=== PATIENT | female | born 1940 | race Caucasian/White ===

== ENCOUNTER 2020-01-04 15:22 | Outpatient (CLI) | payer MEDICARE, OTHER, SELFPAY ==
--- NOTE | ~2020-01-04 | CT_ITS ---
EXAMINATION: CT abdomen pelvis wo con DATE: 01/04/2020 15:39 INDICATION: Diffuse abdominal pain and left flank pain. TECHNIQUE: Computed tomography (CT) of the abdomen and pelvis was performed without intravenous contr ast. Automated exposure control and iterative reconstruction technique were employed. The dose-length product was 215.53 mGy-cm. COMPARISON: None FINDINGS: Mild atelectasis/scarring the lingula and right middle lobe. Heart size is normal. No pericardial or pleural effusion. Calcified epicardial lymph node and multiple small hepatic and splenic calcificatio ns consistent with old granulomatous disease. Gallbladder, pancreas and bilateral adrenal glands are normal. Kidneys and ureters are normal with no urolithiasis, hydroureteronephrosis or perinephric/ure teral stranding. Bladder is normal. Normal appendix. Moderate amount of stool scattered throughout th e colon. No bowel obstruction. The uterus is not identified and has likely been surgically resected. No free intraperitoneal gas or fluid. No pathologically enlarged abdominal or pelvic lymphadenopathy. Mild lumbar spondylosis and mild bilateral hip osteoarthritis. IMPRESSION: 1. No urolithiasis or acute intra-abdominal/pelvic process. Reviewed, dictated and finalized at location A.
== END 2020-01-04 15:23 | disposition home or self-care (01) ==
LOC: ANHIMG 15:22
PROVIDERS: PCP Family Medicine; Visit Provider Family Medicine
DX: R10.9 Unspecified abdominal pain (principal); K59.00 Constipation, unspecified
CPT/HCPCS: 74176

== ENCOUNTER → 2020-10-02 09:13 | Outpatient (CLI) | payer MEDICARE, OTHER, SELFPAY ==
--- NOTE | ~2020-10-02 | XR_ITS ---
EXAMINATION: XR hip RT 2V w AP pelvis EXAM DATE: 10/02/2020 09:39 INDICATION: Low back pain . Right posterior hip pain. Symptoms 10 days. TECHNIQUE: Right hip frontal, 'frog leg' projections for interpretation. Frontal projection pelvis. There is no prior study for comparison. FINDINGS: Smooth right hip femoral head contour, no radiographic evidence of avascular necrosis. The re is mild symmetric bilateral hip primary osteoarthritis. Well-corticated ovoid ossification in the soft tissue adjacent to the right greater trochanter, benig n appearance. Most likely nonspecific granulation tissue or fat necrosis from prior injury. There are no acute fractures or dislocations identified. There is no subcutaneous gas. The soft tissue is un remarkable. There are no radiopaque foreign bodies. IMPRESSION: 1. Mild bilateral hip osteoarthritis. 2. Benign-appearing soft tissue calcification. Reviewed, dictated and finalized at location A.
--- NOTE | ~2020-10-02 | XR_ITS ---
EXAMINATION: XR lumbar spine 2-3V EXAM DATE: 10/02/2020 09:39 INDICATION: Low back pain TECHNIQUE: Lumber spine frontal, lateral, lateral L5-S1 projections for interpretation. There is no prior study for comparison. FINDINGS: The vertebral bodies are aligned in the AP dimension. Mild diffuse lumbar disc disease. Mo derate to severe lumbar facet arthropathy. The neural foramen appear congenitally large and not appre ciably stenotic. No pars defects. Vertebral body heights are maintained. Paraspinal soft tissue is un remarkable. Sacrum, sacroiliac joints, sacral arcuate lines are intact. IMPRESSION: Advanced lumbar facet arthropathy. Reviewed, dictated and finalized at location A.
== END ==
PROVIDERS: PCP Family Medicine; Visit Provider Physician Assistant
DX: M54.5 Low back pain (principal); M16.11 Unilateral primary osteoarthritis, right hip
CPT/HCPCS: 72100; 73502

== ENCOUNTER → 2020-11-15 10:14 | Outpatient (CLI) | payer MEDICARE, OTHER, SELFPAY ==
--- NOTE | ~2020-11-15 | MM_ITS ---
EXAMINATION: MM screening gabe BI w dani HISTORY: Screening mammogram TECHNIQUE: Craniocaudal and mediolateral oblique 3-D tomosynthesis images were obtained and synthetic 2-D images were generated. CAD analysis was submitted and interpreted. COMPARISON: 07/26/2019, 06/01/2018, 05/09/2017 bilateral digital screening mammogram examinations BREAST PARENCHYMAL COMPOSITION: The breasts are heterogeneously dense, which may obscure small masses . FINDINGS: Occasional benign calcifications. Stable mild fibroglandular asymmetry. There is no evidenc e of suspicious mass, calcification, or architectural distortion to suggest malignancy in either [address]. There has been no suspicious interval change. IMPRESSION: 1. No mammographic evidence of malignancy. 2. Recommend routine screening mammography in one year. BI-RADS Category 2: Benign finding(s). Reviewed, dictated and finalized at location A.
== END ==
PROVIDERS: PCP Family Medicine; Visit Provider Family Medicine
DX: Z12.31 Encounter for screening mammogram for malignant neoplasm of breast (principal)
CPT/HCPCS: 77063; 77067

== ENCOUNTER → 2021-02-26 13:47 | Outpatient (CLI) | payer MEDICARE, OTHER, SELFPAY ==
--- NOTE | ~2021-02-26 | US_ITS ---
EXAMINATION: US renal BI DATE: 02/26/2021 14:23 INDICATION: Chronic kidney disease TECHNIQUE: Multiple ultrasound grayscale images of the kidneys were obtained. COMPARISON: None. FINDINGS: The right kidney measures 7.8 x 3.7 x 3.4 cm. The left kidney measures 8.6 x 3.6 x 4.1 cm. The kidney s demonstrate normal echogenicity. There is no hydronephrosis in either kidney. No stones identified . The bladder is normal. IMPRESSION: 1. Bilateral mild likely age-related renal atrophy. Otherwise normal kidneys without hydronephrosis. Reviewed, dictated and finalized at location A. IMPRESSION: 1. Bilateral mild likely age-related renal atrophy. Otherwise normal kidneys w ithout hydronephrosis.
== END ==
PROVIDERS: PCP Family Medicine; Visit Provider Family Medicine
DX: N18.9 Chronic kidney disease, unspecified (principal)
CPT/HCPCS: 76775

== ENCOUNTER → 2021-06-29 09:26 | Outpatient (CLI) | payer MEDICARE, OTHER, SELFPAY ==
--- NOTE | ~2021-06-29 | MR_ITS ---
EXAMINATION: MR brain/brain stem wo con DATE: 06/29/2021 10:42 INDICATION: Tremor, unspecified. Syncope and collapse. TECHNIQUE: Magnetic resonance imaging (MRI) of the brain and brainstem was performed without intraven ous contrast. Sequences included sagittal and axial T1-weighted FSE, axial diffusion-weighted FS EPI, axial T2*-weighted GRE, axial T2-weighted FLAIR Propeller, and axial T2-weighted Propeller. Apparent diffusion coefficient (ADC) maps were created. COMPARISON: None. FINDINGS: There are scattered areas of nonspecific increased T2-weighted signal intensity in the cere bral white matter. There is no intracranial hemorrhage, acute infarction, or abnormal intracranial ma ss lesion. The ventricles are normal in size. There is mild mucosal thickening in the ethmoid sinuses . There are likely changes of ocular lens replacement surgeries. The mastoid air cells are normal. IMPRESSION: 1. Mild nonspecific cerebral white matter disease, which likely represents chronic small vessel ische raina disease. Reviewed, dictated and finalized at location A. GER WOMEN IMPRESSION: 1. 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
== END ==
PROVIDERS: PCP Family Medicine; Visit Provider Family Medicine
DX: R25.1 Tremor, unspecified (principal); R55 Syncope and collapse; R93.0 Abnormal findings on diagnostic imaging of skull and head, not elsewhere classified
CPT/HCPCS: 70551

== ENCOUNTER → 2021-07-03 09:40 | Outpatient (CLI) | payer MEDICARE, OTHER, SELFPAY ==
[2021-07-04 02:02] LABS: SARS-CoV-2 RNA PCR Positive
== END ==
PROVIDERS: PCP Family Medicine; Visit Provider Family Medicine
DX: U07.1 COVID-19 (principal)
CPT/HCPCS: C9803; U0003; U0005

== ENCOUNTER 2021-10-02 11:02 | Observation (INO) | payer MEDICARE, OTHER, SELFPAY ==
[2021-10-02] VITALS (42 sets, daily range): BP systolic 100–166; BP diastolic 56–145; PULSE 69–94; RESP 11–26; TEMP 35.8; O2SAT 93–100
--- NOTE | ~2021-10-02 | CT_ITS ---
EXAMINATION: CT brain wo con DATE: 10/02/2021 12:14 INDICATION: Transient ischemic attack. Seizure. Confusion. TECHNIQUE: Computed tomography (CT) of the head was performed without intravenous contrast. The mA wa s adjusted according to patient size. Iterative reconstruction technique was employed. The dose-lengt h product was 605.33 mGy-cm. COMPARISON: Head CT 03/03/2013 FINDINGS: There are scattered areas of low attenuation in the cerebral white matter, which is within normal limits for the patient's age. There is no intracranial hemorrhage, acute infarction, or abnorm al intracranial mass lesion. The ventricles are normal in size. There are likely changes of ocular le ns replacement surgeries. There is mild mucosal thickening in the ethmoid sinuses. The mastoid air ce lls are normal. IMPRESSION: 1. Normal aging brain. Reviewed, dictated and finalized at location A. IMPRESSION: 1. Normal aging brain.
--- NOTE | ~2021-10-02 | US_ITS ---
EXAMINATION: US carotid duplex BI DATE: 10/03/2021 08:14 INDICATION: Syncope. Transient ischemic episode. TECHNIQUE: Grayscale, color Doppler, and pulsed Doppler images of the cervical carotid arteries were obtained. The degree of vessel stenosis is placed in one of the following categories: normal, <50%, 5 0-69%, >=70% but less than near-occlusion, near-occlusion, or total occlusion. Note that percent sten osis relative to normal distal artery lumen diameter is indirectly measured from velocity measurement s as described by Jonnie, et al. Radiology 2003; [id number]. COMPARISON: None. FINDINGS: RIGHT: The right common carotid artery (CCA) peak systolic velocity (PSV) is 78 cm/s. The right internal car otid artery (ICA) PSV is 90 cm/s. The right ICA end-diastolic velocity (EDV) is 31 cm/s. The right IC A/CCA PSV ratio is 1.1. Grayscale and color Doppler images yield an estimate of <50% diameter reducti on from plaque in the ICA. The external carotid artery (ECA) PSV is 76 cm/s. There is antegrade flow in the right vertebral artery. LEFT: The left CCA PSV is 98 cm/s. The left ICA PSV is 75 cm/s. The left ICA EDV is 21 cm/s. The left ICA/C CA PSV ratio is 0.8. Grayscale and color Doppler images yield an estimate of <50% diameter reduction from plaque in the ICA. The ECA PSV is 69 cm/s. There is antegrade flow in the left vertebral artery. IMPRESSION: 1. <50% stenosis from minimal plaque in the right internal carotid artery. 2. <50% stenosis from minimal plaque in the left internal carotid artery. Reviewed, dictated and finalized at location A.
--- NOTE | ~2021-10-02 | XR_ITS ---
EXAMINATION: XR chest 2V DATE: 10/02/2021 11:20 INDICATION: Syncope. TECHNIQUE: Frontal and lateral views of the chest were obtained. COMPARISON: None. FINDINGS: The chest demonstrates clear lungs without pneumonia, pleural effusion, or pneumothorax. Th e heart size is normal. There is mild chronic anterior wedging of multiple midthoracic vertebral bodi es. IMPRESSION: 1. No acute cardiopulmonary disease. Reviewed, dictated and finalized at location A.
--- NOTE | 2021-10-02 11:05 | ECG_ITS ---
Measurements Intervals [place] Rate: 78 P: 81 DC: 160 QRS: 58 QRSD: 81 T: 77 QT: 361 QTc: 412 Interpretive Statements SINUS RHYTHM POSSIBLE LEFT ATRIAL ENLARGEMENT [-0.1mV P WAVE IN V1/V2] NO PREVIOUS ECG AVAILABLE FOR COMPARISON Electronically Signed On 10-02-2021 18:35:37 CDT by Adelaide Anand M.D.
[2021-10-02 11:21] LABS: Basophils Percent Auto 0.4 % (0.2-1.2); Eosinophils Percent Auto 0.6 % (0-4.4); Hematocrit 45.9 % (37.0-47.0); Hemoglobin 14.9 g/dL (12.0-15.0); Immature Granulocyte Absolute 0.02 K/mm3 (0.00-0.031); Immature Granulocyte Percent A 0.4 % (0-0.5); Lymphocytes Absolute Auto 1.27 K/mm3 (0.9-3.2); Lymphocytes Percent Auto 26.3 % (18.3-44.2); Mean Corpuscular HGB Conc 32.5 g/dl (32-36); Mean Corpuscular Hemoglobin 31.5 pg (26-34); Mean Platelet Volume 9.9 fl (7.4-10.4); Monocytes Absolute Auto 0.6 K/mm3 (0.1-0.6); Monocytes Percent Auto 12.9 % (2.6-8.5); Neutrophils Absolute Auto 2.9 K/mm3 (1.3-6.7); Neutrophils Percent Auto 59.4 % (45.5-73.1); Platelet Count Result 181 k/mm3 (150-375); Red Blood Count 4.73 M/mm3 (4.2-5.4); Red Cell Distribution Width 12.8 % (11.5-14.5); White Blood Count 4.8 K/mm3 (4.5-10.0)
[2021-10-02 11:29] LABS: INR 0.9; Prothrombin Time 12.2 Seconds (11.1-14.7)
[2021-10-02 11:30] LABS: Partial Thromboplastin Time 22.4 SECONDS (22.3-36.8)
[2021-10-02 11:33] LABS: Alanine Aminotransferase 40 U/L (4-35); Albumin Level 4.7 g/dL (3.5-5.1); Alkaline Phosphatase 93 U/L (38-126); Anion Gap 7 mmol/L (8-16); Aspartate Amino Transferase 51 U/L (14-36); Bilirubin,Total 0.6 mg/dL (0.2-1.3); Blood Urea Nitrogen 21 mg/dL (7-17); Calcium 9.3 mg/dL (8.4-10.2); Carbon Dioxide 28 mmol/L (22-30); Chloride 103 mmol/L (98-107); Estimated CRCL calculation 37 ml/min; Estimated Glomerular Filt Rate 60; Glucose 76 mg/dL (65-110); Lipase 136 U/L (23-300); Potassium 4.2 mmol/L (3.4-5.0); Sodium 138 mmol/L (137-145)
[2021-10-02 11:43] LABS: Troponin I < 0.012 ng/mL (0.000-0.034)
--- NOTE | 2021-10-02 12:31 | ED.SYNCOPE ---
HPI - Syncope General Chief Complaint: Syncope Stated Complaint: Syncope Time Seen by Provider: 10/02/21 11:56 Source: patient and RN notes reviewed Mode of arrival: EMS Limitations: no limitations History of Present Illness HPI narrative: 81-year-old female presenting to the emergency department for evaluation after having a syncopal episode at a local restaurant. Patient was having lunch with a friend and while sitting she stated she started to feel ill. Patient did rest her head on her hands and stopped responding to her friend. Friend states that the patient slumped over into her chair and did have some minor shaking activity. Patient's friend was able to lay her onto the floor with some assistance of bystanders, EMS was called. They state once they got the patient onto the floor and was able to get her legs elevated that she had significant improvement. Patient states that she had no loss of bowel or bladder control. Patient did not bite her tongue. Patient was not confused after the episode. Patient does have prior history of syncope but has no prior history of TIA. Patient did start ropinirole approximately 6 weeks ago. Patient states since starting this she has had approximately 3 episodes of syncope. Patient did increase her dose to 0.25 mg 3 times daily approximately 1 week ago. Patient did have an event monitor in may, Dr Vyas. Related Data Home Medications Medication Instructions Recorded Confirmed clobetasol 0.05 % topical ointment 1 applic TOPICAL PRN 05/30/21 10/02/21 amitriptyline 10 mg PO HS 10/02/21 10/02/21 famotidine 20 mg PO HS 10/02/21 10/02/21 hydroxychloroquine 200 mg PO HS 10/02/21 10/02/21 levothyroxine 50 mcg PO DAILY 10/02/21 10/02/21 triamcinolone acetonide 1 applic TOPICAL PRN PRN 10/02/21 10/02/21 Allergies Allergy/AdvReac Type Severity Reaction Status Date / Time Gadolinium-Containing Allergy Unknown Unknown Verified 10/02/21 11:24 Contrast Medi iodine Allergy Unknown Skin Verified 10/02/21 11:24 Reaction warfarin Allergy Unknown itching Verified 10/02/21 11:24 all over ciprofloxacin [From Cipro] Allergy Itching Verified 10/02/21 11:24 Review of Systems Review of Systems: CONSTITUTIONAL: Denies fever, chills, or sweats. EYES: Denies visual changes, redness, or discharge. ENT: Denies rhinorrhea, congestion, sore throat, or otalgia. CARDIOVASCULAR: Denies chest pain, palpitations, or edema. RESPIRATORY: Denies cough or dyspnea. GASTROINTESTINAL: Denies abdominal pain, nausea, vomiting, or diarrhea. GENITOURINARY: Denies dysuria or hematuria. SKIN: Denies rash or itching. MUSCULOSKELETAL: Denies back pain, joint pain, or myalgia. NEUROLOGIC: syncope. [facility] Past Medical History Medical History Bilateral hand pain Blood clot of neck vein 2001. patient reports trauma Counseling on health promotion and disease prevention COVID-19 Duodenal ulcer disease 2018 EGD Dyspepsia Encounter for medication management Health counseling History of esophageal stricture egd 2018 Hypothyroidism, unspecified Optic nerve hemorrhage 2013 Other specified counseling Surgical History Surgical History (Updated 10/02/21 @ 19:24 by Komal Farmer APRN) History of cataract removal with insertion of prosthetic lens History of hysterectomy History of tonsillectomy Family History Family History Mother Family history of osteoporosis Father Family history of liver disease, Onset Age: 82 Sibling Family history of colitis Family history of arthritis Social History Social History (Updated 10/02/21 @ 17:46 by Adelaide Anand MD) Social History: in 2018. She has 1 son in [place] and the other son in [place], with her grandchildren. 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 Alcohol intake: never Gender identity (
--- NOTE | 2021-10-02 12:53 | PC.NURSE ---
Pt provided ice water and food. Pt has no other needs. Updated waiting on repeat troponin
[2021-10-02 14:41] LABS: Troponin I < 0.012 ng/mL (0.000-0.034)
--- NOTE | 2021-10-02 15:16 | PC.NURSE ---
Attempted to call floor/ Nurse was unable for report. Will call back.
--- NOTE | 2021-10-02 17:08 | PM.CNCAR ---
Assessment and Plan Assessment and plan (1) Recurrent syncope: Code(s): R55 - Syncope and collapse Status: Acute Assessment and Plan: Patient with recurrent syncope. Likely orthostatic /vasovagal in nature. Cannot rule out a cardio inhibitory component. Check orthostatics Check echo Will discuss with the patient whether to proceed with further monitoring or a loop recorder to rule out a cardio inhibitory component Increase salt intake, increase fluid intake discussed muscle contraction exercises to use with the prodrome always pay attention to the prodrome and sit down or lie down when it occurs Ropinirole is associated with orthostasis and may be best to discontinue it. History of Present Illness History of Present Illness Consult date/time: 10/02/21 17:08 Requesting physician: Sammy Wu MD Consult reason: Other (Recurrent syncope) Reason For Visit: Syncope Narrative: Savi Redding is an 81-year-old female whom I was asked to see at the request of Dr. Sammy Wu for my advice and opinion regarding her recurrent syncope in consultation. Ms. Redding tells me she has had lightheadedness and near syncopal episodes for about 50 years, generally occurring every couple of years. These spells are worse when she is hot or in the sun. She will start to feel lightheaded, hot and flushed, and often will take off her jacket, take deep breaths, and sit down if she is standing up. She has had a couple true syncopal episodes in the past, for example once while visiting someone in the hospital and was hot and nervous, and once when she was at a rodeo in [place], when it was hot. She has had about 2 or 3 episodes of near syncope in the past month. She also tells me that her blood pressure tends to run on the low side, sometimes in the 90s. She has no history of any heart disease and has not felt any chest pain or palpitations these episodes. Orthostatics done in Dr. Portillo's office apparently has been fine. 05/2021 30 day monitor: Normal sinus rhythm, frequent PVCs and APCs; no sx at that time. Today the patient felt well and was out for breakfast with a friend when she started having that same old lightheaded feeling. Apparently she passed out and her friend and bystanders helped her to the floor where she immediately felt better and regained consciousness. EMS was called. She thinks her blood pressure was in the 90s when they arrived. In the emergency room her blood pressure was 116-124/70s. She is feeling well now. The patient has a tremor, possibly Parkinson's disease, and was started on ropinirole a few weeks ago Her dose was changed from 0.25 mg 2 tablets b.i.d. to: 2 tablets t.i.d. last week. She is always busy, has no problems with any exertional shortness of breath or chest pain. No hypertension or history of heart disease. Review of Systems Constitutional: Constitutional: Reports weakness Eyes: Eyes: Reports blurry vision ( Wears glasses) Cardiovascular: Cardiovascular: Denies chest pain, Denies pedal edema, Denies leg edema, Reports lightheadedness and Denies palpitations Respiratory: Respiratory: Denies dyspnea on exertion Gastrointestinal: Gastrointestinal: Denies abdominal pain Comments: acid reflux Genitourinary: Genitourinary: Denies hematuria Musculoskeletal: Musculoskeletal: Reports arthralgias Integumentary/Breasts: Skin/Breast: Denies rash Neurologic: Denies Abnormal speech present and Denies confusion Psychiatric: Psychiatric: Denies anxiety and Denies behavioral changes [facility] Past Medical History Medical History Bilateral hand pain Blood clot of neck vein 2001. patient reports trauma Counseling on health promotion and disease prevention COVID-19 Duodenal ulcer disease 2018 EGD Dyspepsia Encounter for medication management Health counseling History of esophageal stricture egd
[2021-10-02 17:42] LABS: Troponin I < 0.012 ng/mL (0.000-0.034)
--- NOTE | 2021-10-02 18:47 | PM.IMHP ---
H&P: HPI History of Present Illness Date/Time: Patient was placed observation status for expected length of stay less than 23 hours for management, will plan to re-evaluate tomorrow for improvement. 10/02/21 18:47 Chief Complaint: Syncopal episode Narrative: Ms. Redding is an 81 year old female who presented to the emergency room with complaints of a syncopal episode. Patient states that she has had episodes where she becomes very lightheaded and dizzy when she has been standing and she will sit down and it typically goes away. Patient states that years ago she did have 1 episode when she was going to run to the bathroom to vomit and she passed out in the [place] and her found her. Patient states today she was sitting down at [employer] having a muscle with her friends and she states that she felt very dizzy and hot. Patient states that she was told that her friends were talking to her, but she cannot recall that her friends were talking to her. Her friend is at bedside states the patient would not respond to them and she slumped to the side. Patient's friend states that she felt for a pulse and her pulse was bounding but the patient was extremely clammy. Patient's friend states that they then called EMS which lower the patient to the floor and lifted her feet up in the patient woke up. Patient's friend states that she feels that her friend was unconscious for approximately 1-2 minutes. Patient denies any chest pain, shortness a breath, or palpitations prior to the episode. Patient states her only complaint was dizziness. Patient denies any tunnel vision, weakness, slurring of speech, or loss of bowel or bladder. Patient states she has a known history of chronic headaches, hypothyroidism, tremors, and blood clot in her neck. Patient states that she has been receiving Requip for her tremors and recently her primary care increase the Requip from b.i.d. to t.i.d.. Patient states with her previous syncopal and near syncopal episode she did wear a Holter monitor which showed nothing. Review of Systems Review of Systems: A 12 point review of systems was completed patient all pertinent positive and negative per HPI the remainder are unremarkable. [facility] Past Medical History Medical History Bilateral hand pain Blood clot of neck vein 2001. patient reports trauma Counseling on health promotion and disease prevention COVID-19 Duodenal ulcer disease 2018 EGD Dyspepsia Encounter for medication management Health counseling History of esophageal stricture egd 2018 Hypothyroidism, unspecified Optic nerve hemorrhage 2013 Other specified counseling Surgical History Surgical History (Updated 10/02/21 @ 19:24 by Komal Farmer APRN) History of cataract removal with insertion of prosthetic lens History of hysterectomy History of tonsillectomy Family History Family History Mother Family history of osteoporosis Father Family history of liver disease, Onset Age: 82 Sibling Family history of colitis Family history of arthritis Social History Social History (Updated 10/02/21 @ 17:46 by Adelaide Anand MD) Social History: in 2017. She has 1 son in [place] and the other son in [place], with her grandchildren. 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 Alcohol intake: never Gender identity (if verbalized by the patient): Male Spiritual care concerns: No Meds Home Medications and Allergies Home Medications Medication Instructions Recorded Confirmed Type clobetasol 0.05 % topical ointment 1 applic TOPICAL PRN 05/30/21 10/02/21 History ropinirole 0.25 mg tablet 1 mg PO TID #360 tablet 09/26/21 10/02/21 Rx amitriptyline 10 mg PO HS 10/02/21 10/02/21 History famotidine 20 mg PO HS 10/02/21 10/02/21 History hydroxychloroquine 200 mg PO HS 10/02/21 10/02/21 H
[2021-10-02] MEDS: AMITRIPTYLINE HCL 10 MG TABLET PO (20:35)
[2021-10-02] MEDS: FAMOTIDINE 20 MG TABLET PO (20:35)
[2021-10-02] MEDS: HYDROXYCHLOROQUINE SULFATE 200 MG TABLET PO (20:35)
[2021-10-03] VITALS (7 sets, daily range): BP systolic 96–102; BP diastolic 50–58; PULSE 66–77; RESP 16–20; TEMP 35.6–36.5; O2SAT 99–100
[2021-10-03] MEDS: MELATONIN 5 MG TABLET PO (00:53)
[2021-10-03 05:38] LABS: Basophils Percent Auto 0.6 % (0.2-1.2); Eosinophils Absolute Auto 0.1 K/mm3 (0-0.3); Eosinophils Percent Auto 1.2 % (0-4.4); Hematocrit 38.1 % (37.0-47.0); Hemoglobin 12.8 g/dL (12.0-15.0); Immature Granulocyte Absolute 0.02 K/mm3 (0.00-0.031); Immature Granulocyte Percent A 0.4 % (0-0.5); Lymphocytes Percent Auto 39.4 % (18.3-44.2); Mean Corpuscular HGB Conc 33.6 g/dl (32-36); Mean Corpuscular Volume 92.3 fl (80-100); Mean Platelet Volume 10.1 fl (7.4-10.4); Monocytes Absolute Auto 0.8 K/mm3 (0.1-0.6); Monocytes Percent Auto 14.8 % (2.6-8.5); Neutrophils Absolute Auto 2.2 K/mm3 (1.3-6.7); Neutrophils Percent Auto 43.6 % (45.5-73.1); Platelet Count Result 170 k/mm3 (150-375); Red Blood Count 4.13 M/mm3 (4.2-5.4); Red Cell Distribution Width 12.6 % (11.5-14.5); White Blood Count 5.1 K/mm3 (4.5-10.0)
[2021-10-03] MEDS: LEVOTHYROXINE SODIUM 50 MCG TABLET PO (05:42)
[2021-10-03 05:50] LABS: Anion Gap 5 mmol/L (8-16); Blood Urea Nitrogen 15 mg/dL (7-17); Calcium 8.8 mg/dL (8.4-10.2); Carbon Dioxide 28 mmol/L (22-30); Chloride 105 mmol/L (98-107); Estimated CRCL calculation 37 ml/min; Estimated Glomerular Filt Rate 60; Glucose 88 mg/dL (65-110); Potassium 3.6 mmol/L (3.4-5.0); Sodium 138 mmol/L (137-145)
--- NOTE | 2021-10-03 07:00 | ECHO_ITS ---
Patient Info Name: Savi Redding Age: 81 years : 1940 Gender: Female Ht: 66 in Wt: 119 lbs BSA: 1.58 m2 HR: 66 bpm BP: 96 / 50 mmHg Heart Rhythm: Sinus Rhythm Technical Quality: Fair Exam Date: 10/03/2021 10:46 AM Exam Location: [facility] Card Pulmonary Patient Status: Outpatient Admit Date: 10/02/2021 Staff Ordering Physician: Adelaide Anand MD Hand Decorator: Jennifer De Leon RDCS Attending Provider: Michelle Ayala MD Referring Physician: Cheng LARA; Exam Type: CA echo doppler color flow Study Info Indications - SYNCOPE Complete two-dimensional, color flow and Doppler transthoracic echocardiogram is performed. Summary 1. Complete two-dimensional, color flow and Doppler transthoracic echocardiogram is performed. 2. Normal left ventricular size and thickness. Good systolic function of all segments with no segmental wall motion abnormalities. Ejection fraction is calculated to be 65%. Grade 1 diastolic dysfunction is present. 3. There is mild aortic valve regurgitation. 4. Normal sinus rhythm. Left Ventricle Left ventricular chamber dimension is normal. Left ventricular systolic function is normal, estimated at 60-65%. There is no increased left ventricular wall thickness. Left ventricular septal wall motion is normal. The left ventricular diastolic function is grade I diastolic dysfunction. Right Ventricle Right ventricular chamber dimension is normal. Right ventricular systolic function is normal. Left Atria Left atrial chamber dimension is normal. Right Atria Right atrial chamber dimension is normal. Aortic Valve The aortic valve is trileaflet. There is no aortic valve sclerosis. There is no aortic valve stenosis. There is mild aortic valve regurgitation. Pulmonic Valve The pulmonic valve is normal. There is no pulmonic valve stenosis. There is trace pulmonic regurgitation. Mitral Valve The mitral valve has normal leaflets. There is no mitral valve stenosis. There is no mitral valve regurgitation. Tricuspid Valve The tricuspid valve leaflets are normal. There is no significant tricuspid valve stenosis. There is trace tricuspid valve regurgitation. No pulmonary hypertension, estimated pulmonary arterial systolic pressure is 28 mmHg. Pericardium/Pleural The pericardium appears normal. There is no pericardial effusion. Inferior Vena Cava Normal inferior vena cava with >50% collapse upon inspiration consistent with Empty right atrial pressure, 10 mmHg. Aorta The aortic root size at the sinus of Valsalva is normal. The prox ascending aorta size is normal. Left Ventricular Outflow Tract Name Value Normal LVOT 2D LVOT Diameter 2.0 cm LVOT Doppler LVOT Peak Gradient 4 mmHg LVOT Mean Gradient 2 mmHg LVOT VTI 20 cm LVOT VTI/AV VTI Ratio 0.9 LVOT Stroke Volume 62 ml LVOT CO 4.2 l/min LVOT CI 2.7 l/min/m2 Pulmonic V
[2021-10-03] MEDS: ACETAMINOPHEN 325 MG TABLET 650 MG PO (09:00)
[2021-10-03] MEDS: ENOXAPARIN 40 MG/0.4 ML SYRINGE SUB-Q (09:00)
[2021-10-03] MEDS: SODIUM CHLORIDE 0.9% IV 250 ML 70 ML IV CONT (13:27)
--- NOTE | 2021-10-03 14:31 | PM.PNCARD ---
Progress Note: A&P Assessment and Plan (1) Recurrent syncope: Code(s): R55 - Syncope and collapse Status: Acute Assessment and Plan: Patient with recurrent syncope. Likely orthostatic /vasovagal in nature. Cannot rule out a cardio inhibitory component. Orthostatics negative Echo showed good LV fxn Increase intravascular volume by increasing salt intake, increase fluid intake, take salt tablets Reviewed muscle contraction exercises to use with the prodrome Always pay attention to the prodrome and sit down or lie down when it occurs Ropinirole is associated with orthostasis and may be best to discontinue it. My expectations there is a significant cardio inhibitory component is low. However the patient has increasing frequency of symptoms, particularly of actual syncope, we can evaluate further with a loop recorder. I gave her my phone number to call if she wanted to pursue this in the future. We also have medications that can be used to increase blood pressure and intravascular volume such as Florinef and midodrine. Those are options the future if her episodes become more frequent or severe Okay for discharge from my point of view. (2) Low blood pressure: Code(s): I95.9 - Hypotension, unspecified Status: Acute Assessment and Plan: History of running low breath pressure at home. Today her systolic is 95 and she is feeling fine. Getting IV fluids Same as before: Increase salt and fluid intake, avoid heat etc.. Subjective Date/time seen: 10/03/21 14:31 Interval history: Patient with a long history of recurrent syncope And near-syncope. Follow-up for syncopal episode. date of service 10/03/2021: Patient is doing fine, no new problems. States she had orthostatics done last night and they were unremarkable (I can not find them ). Systolic BP today is 95. Echo showed normal LV function. Carotid ultrasound showed less than 50% stenosis bilaterally Review of Systems Constitutional: Constitutional: Denies weakness Eyes: Eyes: Denies blurry vision ENT: Denies epistaxis Cardiovascular: Cardiovascular: Denies chest pain and Denies leg edema Respiratory: Respiratory: Denies dyspnea Gastrointestinal: Gastrointestinal: Denies abdominal pain Genitourinary: Genitourinary: Reports no additional female genitourinary complaints Musculoskeletal: Musculoskeletal: Reports no additional musculoskeletal complaints Integumentary/Breasts: Skin/Breast: Reports system reviewed and no additional complaints, except as docu Neurologic: Reports system reviewed and no additional complaints, except as documented Psychiatric: Psychiatric: Reports no additional psychiatric complaints Exam Narrative: Very pleasant smiling older lady sitting up in chair reading her book Const: General: comfortable and no acute distress HENMT: General nose exam: no epistaxis Eyes: EOM: EOMs intact bilaterally Neck: Neck: supple Resp: Effort & Inspection: normal respiratory effort Auscultation: clear to auscultation bilaterally Cardio: Rate: regular rate Rhythm: regular rhythm Heart sounds: no murmurs GI: Inspection: non-distended GI Palp: Yes Soft to palpation Skin: General skin exam: no rashes or lesions noted Neuro: Cognition (Neuro): normal cognition Speech: normal speech Extrem: General: no edema Psych: Mental Status: mental status grossly normal Objective Data Vital Signs Vital Signs: Vital Signs - 24 hr 10/02/21 14:41 10/02/21 14:45 10/02/21 14:46 Temperature Pulse Rate 94 82 82 Respiratory Rate 16 18 15 Blood Pressure 105/65 115/95 H Pulse Oximetry 100 100 100 10/02/21 14:49 10/02/21 15:00 10/02/21 15:02 Temperature Pulse Rate 75 88 88 Respiratory Rate 17 25 H 26 H Blood Pressure 119/56 L 166/145 H Pulse Oximetry 97 100 100 10/02/21 16:00 10/02/21 19:49 10/02/21 19:52 Temperature 96.4 F L 96.4 F L Pulse Rate 74 80 81 Respiratory Rate
--- NOTE | 2021-10-03 15:46 | PM.DS ---
DS: Admitting Diagnosis Discharge Date 10/03/2021 Admitting Diagnosis Syncopal episode DS: Discharge Diagnosis Discharge Diagnosis (1) Syncope: Qualifiers: Syncope type: unspecified Qualified Code(s): R55 - Syncope and collapse Code(s): R55 - Syncope and collapse Status: Acute Assessment and Plan: Patient with recurrent syncope. Orthostatic /vasovagal in nature. US carotids are negative ? Requip related. (2) Tremor: Code(s): R25.1 - Tremor, unspecified Status: Acute Assessment and Plan: Patient had a recent increase of her dose of Requip from b.i.d. to t.i.d.. Requip has been noted to call as bradycardia, syncope, and orthostatic hypotension. We will stop requip in the hospital. (3) Hypothyroid: Qualifiers: Hypothyroidism type: unspecified Qualified Code(s): E03.9 - Hypothyroidism, unspecified Code(s): E03.9 - Hypothyroidism, unspecified Status: Acute Assessment and Plan: TSH is nl (4) Low blood pressure: Code(s): I95.9 - Hypotension, unspecified Status: Acute Assessment and Plan: Hypotension, pt treated with iv fluids not tilting, pt adviced to drink plenty of fluids DS: Summary Hospital Course Hospital Course: Miladis is an 81 year old female who presented to the emergency room with complaints of a syncopal episode. Patient states that she has had episodes where she becomes very lightheaded and dizzy when she has been standing and she will sit down and it typically goes away. Pt had iv fluids, Bp improved, pt is stable for DC. Time Spent with Patient Time attestation: Total time spent providing and/or coordinating discharge services:40 minutes on the day of discharge Exam Narrative: Constitutional: Patient is well-nourished in no acute distress. Patient is alert and oriented x3 Lungs: Lung sounds are clear to auscultation bilaterally. No accessory muscle use. No rhonchi, rales, or wheezes noted. Cardiovascular: Apical pulse is regular rate and rhythm. S1-S2 noted, no S3 or S4 noted. No gallops, murmurs, or rubs noted. Abdomen: Soft, round, and nontender. No palpable masses. Extremities: No edema. Nontender. Skin: No rashes or lesions. Warm and dry. Skin is intact. Neurological: No focal neurological deficits. Cranial nerves II-XII grossly intact. Psychiatric: Cooperative, appropriate mood, and affect DS: Data Data Completed and Pending Labs on day of discharge: Labs from last 24 hours 10/03/21 10/03/21 10/03/21 05:14 05:14 05:14 WBC 5.1 RBC 4.13 L Hgb 12.8 Hct 38.1 MCV 92.3 MCH 31.0 MCHC 33.6 RDW 12.6 Plt Count 170 MPV 10.1 Immature Gran % (Auto) 0.4 Neut % (Auto) 43.6 L Lymph % (Auto) 39.4 [place] % (Auto) 14.8 H Eos % (Auto) 1.2 Baso % (Auto) 0.6 Lymph # (Auto) 2.00 [place] # (Auto) 0.8 H Eos # (Auto) 0.1 Baso # (Auto) 0.0 Abs Immat Gran (auto) 0.02 Absolute Neuts (auto) 2.2 Absolute Nucleated RBC 0.0 Nucleated RBC % 0.0 Sodium 138 Potassium 3.6 Chloride 105 Carbon Dioxide 28 Anion Gap 5 L BUN 15 D Creatinine 0.90 Estim Creat Clear Calc 37 Estimated GFR 60 Glucose 88 Calcium 8.8 Troponin I TSH (Reflex) 3.950 10/02/21 17:15 WBC RBC Hgb Hct MCV MCH MCHC RDW Plt Count MPV Immature Gran % (Auto) Neut % (Auto) Lymph % (Auto) [place] % (Auto) Eos % (Auto) Baso % (Auto) Lymph # (Auto) [place] # (Auto) Eos # (Auto) Baso # (Auto) Abs Immat Gran (auto) Absolute Neuts (auto) Absolute Nucleated RBC Nucleated RBC % Sodium Potassium Chloride Carbon Dioxide Anion Gap BUN Creatinine Estim Creat Clear Calc Estimated GFR Glucose Calcium Troponin I < 0.012 TSH (Reflex) Discharge Plan Discharge Attending physician on discharge: Monique Cho Consulting providers: Adelaide Anand ; Milton Carias
--- NOTE | 2021-10-03 16:30 | WPDNEURCNPN ---
Assessment and Plan Additional Plan 1. Orthostatic /vasovagal syncopal episode 2 cardiology consultation has been obtained and their recommendation have been noted patient had been taking ropinirole with the increasing symptomatology that medication can be discontinued and symptomatic treatment will be continued at present Consult date: 10/03/21 HPI: Savi Redding is a 81 year old female 81 years old right-handed female has been placed on observation status. Presented to emergency room with complaints of syncopal episodes with description that she becomes very lightheaded dizzy when she stands up and when she sits down it typically goes away reportedly years ago she had an episode when she was going to run to the bathroom to vomit she passed out in the munoz and her found her today she was sitting down at the company she felt very dizzy and hot her friends were talking to her at that time but she was unable to recall and she was not responding to them and then she slumped to the side he had bounding pulse at that time as per the observer but extremely clammy they called the EMS and when she was lowered to the floor and lifted her feet up the patient woke reportedly as per the friend she was unconscious for approximately 1 to 2 minutes but she gave no history of associated any other general or neurological symptomatology and also she did not become incontinent of bowel or bladder. She does have a history of blood clot in the neck secondary to trauma, history of COVID-19, history of duodenal ulcer disease, and history of esophageal stricture requiring dilatation and also optic nerve hemorrhage in the past, she has undergone cataract extraction, she does not drink alcohol and her medication as an outpatient included ropinirole 0.25 mg 3 times a day amitriptyline 10 mg at night hydroxychloroquine 200 p.o. HS levothyroxine 50 micro christian daily she is reportedly allergic to warfarin her initial vital signs were stable, initial routine blood studies were unremarkable and x-ray chest CT of the head and carotid Doppler studies are negative Review of Systems Review of Systems: All systems reviewed & are unremarkable except as noted in HPI and below [facility] Past Medical History Medical History Bilateral hand pain Blood clot of neck vein 2001. patient reports trauma Counseling on health promotion and disease prevention COVID-19 Duodenal ulcer disease 2017 EGD Dyspepsia Encounter for medication management Health counseling History of esophageal stricture egd 2017 Hypothyroidism, unspecified Optic nerve hemorrhage 2013 Other specified counseling Surgical History Surgical History History of cataract removal with insertion of prosthetic lens History of hysterectomy History of tonsillectomy Family History Family History Mother Family history of osteoporosis Father Family history of liver disease Sibling Family history of arthritis Family history of colitis Mother No problems noted. Social History Social History Social History: in 2017. She has 1 son in [place] and the other son in [place], with her grandchildren. 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 Second hand tobacco smoke exposure: No Alcohol intake: never Gender identity (if verbalized by the patient): Male Spiritual care concerns: No Meds Home Medications and Allergies Home Medications Medication Instructions Recorded Confirmed Type clobetasol 0.05 % topical ointment 1 applic TOPICAL PRN 05/30/21 10/02/21 History ropinirole 0.25 mg tablet 1 mg PO TID #360 tablet 09/26/21 10/03/21 Rx amitriptyline 10 mg PO HS 10/02/21 10/02/21 History famotidine 20 mg PO HS 10/02/21 10/02/21 History hydroxychloroquine 200 mg PO HS
== END 2021-10-03 18:10 | disposition home or self-care (01) ==
LOC: ANHED 14:01 → ANH3MED 10-03 09:20
PROVIDERS: Emergency Medicine; Nurse Practitioner Adult Health; Admitting Provider Family Medicine; Emergency Provider Emergency Medicine; PCP Family Medicine; Visit Provider Family Medicine
DX: R55 Syncope and collapse (principal); I95.9 Hypotension, unspecified; E03.9 Hypothyroidism, unspecified; R25.1 Tremor, unspecified; I35.1 Nonrheumatic aortic (valve) insufficiency; I65.23 Occlusion and stenosis of bilateral carotid arteries
CPT/HCPCS: 36415; 70450; 71046; 80048; 80053; 83690; 84443; 84484; 85025; 85610; 85730; 93005; 93306; 93880; 96372; 99285; A9270; G0378; J1650; J7050

== ENCOUNTER 2021-10-06 08:30 | Outpatient (CLI) | payer MEDICARE, OTHER, SELFPAY ==
--- NOTE | ~2021-10-06 | DEXA_ITS ---
Bone Density Report Name: YANELIS REECE Age: 81 Sex: Female Ethnicity: White Date of : 1940 Indication: postmenopausal; parental hip fracture; height loss; hysterectomy; Referring Provider: RUBEN BONDS Study: Bone densitometry was performed. Exam Date: October 06, 2021 Accession number: [id number] Bone Density: Region BMD T-score Z-score Classification AP Spine (L1-L4) 1.044 0.0 2.7 Normal Femoral Neck (Left) 0.721 -1.2 1.2 Osteopenia Total Hip (Left) 0.864 -0.6 1.5 Normal Total Hip Bilateral Avg 0.836 -0.9 1.3 Normal Femoral Neck (Right) 0.708 -1.3 1.1 Osteopenia Total Hip (Right) 0.807 -1.1 1.0 Osteopenia World Health Organization criteria for BMD impression classify patients as: Normal (T-score at or above -1.0), Osteopenia (T-score between -1.0 and -2.5), or Osteoporosis (T-score at or below -2.5). 10-year Fracture Risk: FRAX not reported because: Treated for osteoporosis Clinical Information Provided by Patient: Parent has had a hip fracture Is being treated for osteoporosis Has used the following medications: Prolia (i.e. denosumab), Calcium Has the following medical conditions: Hysterectomy Patient maximum height was 67 Menopause Age: 50 Drinks caffeinated beverages Onset of menses at age 12 Number of children 2 Impression: The patient has low bone mass, based on the Right Femoral Neck T-score. The patient has risk factors, including: parental hip fracture. Discussion: It is important to ask patients whether they are taking their medications and to encourage continued and appropriate compliance with their osteoporosis therapies to reduce fracture risk. It is also important to review their risk factors and encourage appropriate calcium and vitamin D intakes, exercise, fall prevention and other lifestyle measures. Follow-Up: Consider a repeat BMD and Vertebral Fracture Assessment (VFA) exam in 2 years or sooner if medically necessary, to reassess this patient's status. Reported by: LUZ on 10/06/2021 10:21:00 AM. Reviewed, dictated and finalized at location [facility] JULES
== END 2021-10-06 08:31 | disposition home or self-care (01) ==
LOC: ANHIMG 08:32
PROVIDERS: PCP Family Medicine; Visit Provider Family Medicine
DX: M81.0 Age-related osteoporosis without current pathological fracture (principal); Z78.0 Asymptomatic menopausal state; M85.852 Other specified disorders of bone density and structure, left thigh; M85.851 Other specified disorders of bone density and structure, right thigh
CPT/HCPCS: 77080

== ENCOUNTER 2021-11-17 10:25 | Outpatient (CLI) | payer MEDICARE, OTHER, SELFPAY ==
--- NOTE | ~2021-11-17 | MM_ITS ---
EXAMINATION: MM screening gabe BI w dani HISTORY: Screening mammogram TECHNIQUE: Craniocaudal and mediolateral oblique 3-D tomosynthesis images were obtained and synthetic 2-D images were generated. CAD analysis was submitted and interpreted. COMPARISON: , 07/26/2019, 06/01/2018 bilateral screening mammogram examinations BREAST PARENCHYMAL COMPOSITION: The breasts are heterogeneously dense, which may obscure small masses . FINDINGS: Stable mild fibroglandular asymmetry. Occasional bilateral benign calcifications. There is no evidence of suspicious mass, calcification, or architectural distortion to suggest malignancy in e ither breast. There has been no suspicious interval change. IMPRESSION: 1. No mammographic evidence of malignancy. 2. Recommend routine screening mammography in one year. BI-RADS Category 2: Benign finding(s). Reviewed, dictated and finalized at location A.
== END 2021-11-17 10:26 | disposition home or self-care (01) ==
LOC: ANHIMG 10:26
PROVIDERS: PCP Family Medicine; Visit Provider Family Medicine
DX: Z12.31 Encounter for screening mammogram for malignant neoplasm of breast (principal)
CPT/HCPCS: 77063; 77067

== ENCOUNTER 2022-09-24 10:51 | Outpatient (CLI) | payer MEDICARE, OTHER, SELFPAY ==
[2022-09-24 18:36] LABS: Basophils Percent Auto 0.4 % (0.2-1.2); Eosinophils Percent Auto 0.6 % (0-4.4); Hematocrit 44.5 % (37.0-47.0); Hemoglobin 14.2 g/dL (12.0-15.0); Lymphocytes Absolute Auto 1.43 K/mm3 (0.9-3.2); Lymphocytes Percent Auto 29.9 % (18.3-44.2); Mean Corpuscular HGB Conc 31.9 g/dl (32-36); Mean Corpuscular Hemoglobin 30.1 pg (26-34); Mean Corpuscular Volume 94.3 fl (80-100); Mean Platelet Volume 11.1 fl (7.4-10.4); Monocytes Absolute Auto 0.5 K/mm3 (0.1-0.6); Monocytes Percent Auto 9.8 % (2.6-8.5); Neutrophils Absolute Auto 2.8 K/mm3 (1.3-6.7); Neutrophils Percent Auto 59.3 % (45.5-73.1); Platelet Count Result 175 k/mm3 (150-375); Red Blood Count 4.72 M/mm3 (4.2-5.4); White Blood Count 4.8 K/mm3 (4.5-10.0)
[2022-09-24 19:25] LABS: Vitamin D 25 Hydroxy 47.2 ng/mL
[2022-09-24 19:45] LABS: Hepatitis C Virus Antibody Negative (Negative)
[2022-09-24 20:20] LABS: Alanine Aminotransferase 28 U/L (6-35); Albumin Level 4.4 g/dL (3.5-5.1); Alkaline Phosphatase 62 U/L (38-126); Anion Gap 6 mmol/L (8-16); Aspartate Amino Transferase 52 U/L (14-36); Bilirubin,Total 0.6 mg/dL (0.2-1.3); Blood Urea Nitrogen 24 mg/dL (7-17); Calcium 9.3 mg/dL (8.4-10.2); Carbon Dioxide 31 mmol/L (22-30); Chloride 102 mmol/L (98-107); Cholesterol 153 mg/dL (0-200); Estimated Glomerular Filt Rate 53; Glucose 76 mg/dL (65-110); HDL Direct 63 mg/dL; Potassium 3.9 mmol/L (3.4-5.0); Sodium 139 mmol/L (137-145); Triglycerides 81 mg/dL (<150)
[2022-09-24 20:32] LABS: LDL Cholesterol Direct 56 mg/dL
[2022-10-03 08:57] LABS: Gliadin AB, IgG <1.0 U/mL (<15.0); TTG IGA AB <1.0 U/mL (<15.0)
== END 2022-09-24 10:52 | disposition home or self-care (01) ==
LOC: ANHGOSHLAB 10:55
PROVIDERS: PCP Family Medicine; Visit Provider Family Medicine
DX: E03.9 Hypothyroidism, unspecified (principal); E55.9 Vitamin D deficiency, unspecified; K21.9 Gastro-esophageal reflux disease without esophagitis; L29.9 Pruritus, unspecified; M81.0 Age-related osteoporosis without current pathological fracture; N18.30 Chronic kidney disease, stage 3 unspecified; Z11.59 Encounter for screening for other viral diseases; Z79.899 Other long term (current) drug therapy
CPT/HCPCS: 36415; 80053; 80061; 82306; 82607; 82728; 83516; 84443; 85025; 86255; 86803

== ENCOUNTER 2022-11-20 02:25 | Day surgery (SDC) | payer MEDICARE, OTHER, SELFPAY ==
[2022-11-20 10:34] VITALS: BP 121/68; PULSE 74; RESP 19; TEMP 36.8; O2SAT 100; BMI 19.8
--- NOTE | 2022-11-20 11:16 | WPDHPUPDATE1 ---
History and Physical Update Update Date/Time: 11/20/22 11:16 History and Physical has been reviewed, including an updated exam of the patient. There are NO changes in the patient's condition. Risks, benefits, and alternatives have been discussed and questions answered. Patient agrees to proceed with procedure.
--- NOTE | 2022-11-20 11:16 | WPDMODSED ---
Moderate Sedation Note-Pt Data Patient Data Diagnosis: Unexplained near-syncope and syncope Present Complaint: none Procedure to be performed/Plan: loop recorder implantation history and physical update: Patient is a pleasant 82-year-old female with past medical history significant for PVCs, lupus and recurrent near-syncope and syncope otherwise unexplained referred for loop recorder implantation for further evaluation for tachy and or bradyarrhythmia contribution. Impression: Near syncope and syncope PVC's Plan of care: Loop recorder implantation Allergies Allergy/AdvReac Type Severity Reaction Status Date / Time ciprofloxacin [From Cipro] Allergy Severe Itching Verified 11/19/22 13:41 Gadolinium-Containing Allergy Severe Itching Verified 11/19/22 13:41 Contrast Medi iodine Allergy Severe Skin Verified 11/19/22 13:41 Reaction warfarin Allergy Severe itching Verified 11/19/22 13:41 all over Home Medications Medication Instructions Recorded Confirmed Type famotidine 20 mg tablet 20 mg PO HS 10/02/21 11/19/22 History triamcinolone acetonide 0.1 % 1 applic topical PRN PRN Itching 10/02/21 11/19/22 History topical cream hydroxychloroquine 200 mg tablet 200 mg PO HS #90 tabs 08/06/22 11/19/22 Rx levothyroxine 50 mcg tablet 50 mcg PO DAILY #90 tabs 08/16/22 11/19/22 Rx amitriptyline 10 mg tablet 10 mg PO HS #90 tabs 09/23/22 11/19/22 Rx fludrocortisone 0.1 mg tablet 0.1 mg PO DAILY 11/19/22 11/19/22 History Sedation/Anesthesia: No previous sedation/anesthesia problems (including family history). [facility] Past Medical History Medical History Abdominal pain Bilateral hand pain Blood clot of neck vein 2001. patient reports trauma COVID-19 Duodenal ulcer disease 2018 EGD Dyspepsia Esophageal dysphagia History of esophageal stricture egd 2018 Hypothyroidism, unspecified IT band syndrome Itching Low back pain Optic nerve hemorrhage 2013 Xerosis cutis Surgical History Surgical History History of cataract removal with insertion of prosthetic lens History of hysterectomy History of tonsillectomy Family History Family History Mother Family history of osteoporosis Father Family history of liver disease Sibling Family history of arthritis Family history of colitis Mother No problems noted. Social History Social History Social History: in 2017. She has 1 son in [place] and the other son in [place], with her grandchildren. 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 Smoking status: Never smoker Second hand tobacco smoke exposure: No Alcohol intake: never Substance use: never Substance use type: does not use Lack of Transportation: No Lack of Food: Never True Current Housing: I Have Housing Concerned About Future Housing: No Difficulty Paying Gas/Electric Bills: No Difficulty Paying for Meds: No Currently Unemployed: No Education: High School Diploma/GED Difficulty w/ Childcare or Family Care: No Living arrangements: alone Gender identity (if verbalized by the patient): Male Spiritual care concerns: No Mod Sed Physical Exam Physical Exam Pre Procedural Exam: Normal: Appearance, Eyes, Ears, Nose, Neck, Throat, Airway, Lungs, Heart Size, Heart Rate, Heart Rhythm, Neuro Exam, Abdomen, Extremities and Skin Hours since solid foods: 12 Hours since liquid intake: 12 Mallampati Classification: class III Internal Medicine - PN: Obj Da Vital Signs Vital Signs: Vital Signs - 24 hr 11/20/22 10:34 Temperature 36.8 C Pulse Rate 74 Respiratory Rate 19 Blood Pressure 121/68 Pulse Oximetry 100 Oxygen Delivery Room Air ASA Classification/Sedation ASA Classificati
--- NOTE | 2022-11-20 11:21 | PM.OP ---
Procedure Note - Brief Procedure Note - Brief Date of procedure: 11/20/22 Syncope Post-op diagnosis: Same Procedure performed: Loop recorder implantation Surgeon: Bruce Leroy MD Findings: successful implantation of loop recorder for evaluation for unexplained syncope. Description of procedure: Brief History of Present Illness: Patient is a Pleasant 82-year-old female with past medical history significant for unexplained near-syncope and syncope, PVCs and lupus referred for loop recorder implantation for further evaluation. After verbal and written informed consent was obtained from the patient risks, benefits, and alternatives explained in detail the patient agreed to proceed with the plan of care as outlined above. Patient was evaluated at bedside [facility]. Patient was placed the appropriate supine position. Left anterior chest wall was prepped and draped in the usual sterile fashion. Operators in appropriate sterile garb. The left 4th intercostal space was identified and marked. Utilizing approximately 22 cc of 1% subcutaneous lidocaine the left anterior chest wall was then locally anesthetized. After local anesthesia was achieved, 2 fingerbreadths left of the sternum at the 4th intercostal space was again identified and a 1 cm incision was made with the included skin punch tool. Following this with the included introducer, a tract was made subcutaneously at a 45 degree angle from the sternum. The introducer was then advanced to the hub. The Biotronik IIIm loop recorder SN [id number] was advanced subcutaneously into position easily and without complication. The introducer was then removed. Manual pressure was held for least 5-10 min with excellent hemostasis. The device was then interrogated and revealed excellent fidelity and measured at 0.56 mV. The Biotronik IIIm was implanted without complication. The incision was then approximated and closed using Exofin skin adhesive. The incision was then covered. Complications: None Implants: Biotronik loop recorder SN [id number] Estimated blood loss (mL): 0 Pathology: None sent Complications: No immediate complications Condition: Stable Disposition: Same day
[2022-11-20 11:54] VITALS: BP 118/66; PULSE 72; RESP 19; O2SAT 100
[2022-11-20 12:06] VITALS: BP 124/65; PULSE 71; RESP 11; O2SAT 100
[2022-11-20 12:10] VITALS: BP 120/64; PULSE 70; RESP 13; O2SAT 100
[2022-11-20 12:15] VITALS: BP 113/71; PULSE 71; RESP 11; O2SAT 100
[2022-11-20 12:30] VITALS: BP 121/67; PULSE 70; RESP 15; O2SAT 100
--- NOTE | 2022-12-30 09:56 | W.PM.PROC2 ---
Procedure Note - Detailed Date of Procedure 11/20/22 Pre-op Diagnosis Syncope Post-op Diagnosis Same Procedure Performed Loop recorder implantation Surgeon Bruce Leroy MD Anesthesia Local Indications loop recorder implantation Findings successful implantation of loop recorder Description of Procedure Brief History of Present Illness: Patient is a? Pleasant 82-year-old female with past medical history significant for unexplained near-syncope and syncope, PVCs and lupus referred for loop recorder implantation for further evaluation. After verbal and written informed consent was obtained from the patient risks, benefits, and alternatives explained in detail the patient agreed to proceed with the plan of care as outlined above.? Patient was evaluated at bedside in [facility] procedure room.? Patient was placed the appropriate supine position.? Left anterior chest wall was prepped and draped in the usual sterile fashion.? Operators in appropriate sterile garb.? The left 4th intercostal space was identified and marked.? Utilizing approximately 22 cc of 1% subcutaneous lidocaine the left anterior chest wall was then locally anesthetized.? After local anesthesia was achieved, 2 fingerbreadths left of the sternum at the 4th intercostal space was again identified and a 1 cm incision was made with the included skin punch tool.? Following this with the included introducer, a tract was made subcutaneously at a 45 degree angle from the sternum. The introducer was then advanced to the hub. The Biotronik IIIm loop recorder SN [id number] was advanced subcutaneously into position easily and without complication.? The introducer was then removed.? Manual pressure was held for least 5-10 min with excellent hemostasis.? The device was then interrogated and revealed excellent fidelity and measured at 0.56 mV.? The Biotronik IIIm was implanted without complication.? The incision was then approximated and closed using Exofin skin adhesive. ? The incision was then covered. Implants ?Biotronik loop recorder SN [id number] Estimated Blood Loss 0 Complications No immediate complications Condition Stable Disposition Same day
== END 2022-11-20 13:05 | disposition home or self-care (01) ==
PROVIDERS: PCP Family Medicine; Visit Provider Internal Medicine Cardiovascular Disease
PROC: (CPT 33285; principal; 2022-11-20 11:30)
DX: R55 Syncope and collapse (principal); I49.3 Ventricular premature depolarization; E03.9 Hypothyroidism, unspecified; L85.3 Xerosis cutis
CPT/HCPCS: 33285; C1764

== ENCOUNTER 2023-01-02 14:56 | Outpatient (CLI) | payer MEDICARE, OTHER, SELFPAY ==
--- NOTE | ~2023-01-02 | MM_ITS ---
EXAMINATION: MM screening agbe BI w dani HISTORY: Screening mammogram TECHNIQUE: Craniocaudal and mediolateral oblique 3-D tomosynthesis images were obtained and synthetic 2-D images were generated. CAD analysis was submitted and interpreted. COMPARISON: 11/17/2021, 11/15/2020, 07/26/2019 bilateral screening mammogram examinations BREAST PARENCHYMAL COMPOSITION: The breasts are heterogeneously dense, which may obscure small masses . FINDINGS: An electronic device is noted in the left breast. Stable fibroglandular asymmetry. Occasional benign calcifications. There is no evidence of suspicious mass, calcification, or architectural distortion to suggest malig linn in either breast. There has been no suspicious interval change. IMPRESSION: 1. No mammographic evidence of malignancy. 2. Recommend routine screening mammography in one year. BI-RADS Category 2: Benign finding(s). Reviewed, dictated and finalized at location A.
== END 2023-01-02 14:57 | disposition home or self-care (01) ==
LOC: ANHIMG 14:58
PROVIDERS: PCP Family Medicine; Visit Provider Family Medicine
DX: Z12.31 Encounter for screening mammogram for malignant neoplasm of breast (principal)
CPT/HCPCS: 77063; 77067

== ENCOUNTER 2023-11-07 10:00 | Outpatient (RCR) | payer MEDICARE, OTHER, SELFPAY ==
--- NOTE | 2023-10-08 16:17 | OPREHPOC ---
Outpatient Therapy Plan of Care This is a Multidisciplinary Plan of Care that may contain components documented by all disciplines (PT, OT, and ST.) PT Problem 1 PT Problem #1 Knowledge Deficit PT Goal 1 Goal Pt to be IND with issued HEP Target Visit 8 PT Problem 2 PT Problem #2 Pain PT Goal 1 Goal Pt to report pain no greater than 3/10 in the last week. Target Visit 8 PT Goal 2 Goal Pt to report 75% improvement in overall symptoms. Target Visit 8 PT Problem 3 PT Problem #3 Impaired Strength PT Goal 1 Goal Pt to improve lateral hip strength to grossly 4/5. Target Visit 8 PT Goal 2 Goal Pt to demonstrate a functional lift and carry with 20lb from ground level Target Visit 8
--- NOTE | 2023-10-08 16:17 | PTOPEVAL1 ---
Assessment and note entered by Juancho Patel, PT, DPT Evaluation Information Assessment Status Evaluation Diagnosis R sided lumbosacral pain Subjective Information Pt reports a chronic history of R sided hip and low back pain, worsening in the last couple of months. She reports in the last couple of weeks her pain has gotten more intense and more frequent . At times it feels like she cannot walk. She states the pain is really random. It feels like a shooting pain when she feels it, leaning forward helps relieve it. She likes to do yard work but has been unable to d /t her pain. Reported Pain Level Pain Score 0: Self Report Assessment PT Clinical Summary Savi presents to therapy this date for her initial evaluation with a diagnosis of R sided lumbosacral pain. Today she demonstrates pelvic asymmetries in supine testing, piriformis tenderness to palpation, and decreased hip and core strength globally. She ambulates with an increased pelvic sway. Skilled therapy services are indicated to address the deficits noted above, to manage pain, to improve alignment, and to return to PLOF. Plan of Care Interventions Electrical Stimulation,Gait Training,Hot Pack/Cold Pack,Manual Therapy,Patient/Caregiver Educati, Therapeutic Activities,Therapeutic Exercise PT Services Indicated Yes Treatment Frequency and 2x/wk for 8 visits Duration These treatments will address the objective and functional deficits as defined above. The patient will be advanced safely and appropriately in order for the patient to progress towards his/her prior level of function. Additional exercises will be introduced and as well as a comprehensive home exercise program upon discharge, if needed, ?to ensure carryover of functional gains achieved in the clinic. This treatment plan has been reviewed and agreement upon by the patient.
--- NOTE | 2023-11-07 11:00 | PTOPDC ---
Assessment and note entered by Juancho Patel, PT, DPT Evaluation Information Assessment Status Discharge Diagnosis R sided lumbosacral pain Subjective Information Pt states it feels like her pain comes and goes. She states at times it feels like her back is better but other times it feels about the same. Reported Pain Level Pain Score 0: Self Report Assessment PT Clinical Summary Savi presents to therapy this date for her progress report following 8 visits of skilled therapy to treat her diagnosis of R sided lumbosacral pain. Today she demonstrates improved body awareness and mechanics with daily tasks. She improved her Oswestry score by 10%. She is progressing well towards her therapy goals and no longer requires skilled services. She will be discharged at this time.
== END 2023-11-07 11:21 | disposition home or self-care (01) ==
LOC: ANHGOSHPT 10:00
PROVIDERS: PCP Family Medicine; Visit Provider Family Medicine
DX: M53.3 Sacrococcygeal disorders, not elsewhere classified (principal); G89.29 Other chronic pain
CPT/HCPCS: 97110; 97112; 97161; 97530

== ENCOUNTER 2023-11-11 10:27 | Outpatient (CLI) | payer MEDICARE, OTHER, SELFPAY ==
--- NOTE | ~2023-11-11 | DEXA_ITS ---
Bone Density Report Name: YANELIS REECE Age: 83 Sex: Female Ethnicity: White Date of : 1940 Indication: postmenopausal; screening for osteoporosis; parental hip fracture; height loss; hysterectomy; Referring Provider: RUBEN BONDS Study: Bone densitometry was performed. Exam Date: November 11, 2023 Accession number: [id number] Bone Density: Region BMD T-score Z-score Classification AP Spine(L1-L4) 1.055 0.1 2.9 Normal Femoral Neck (Left) 0.688 -1.5 1.0 Osteopenia Total Hip (Left) 0.849 -0.8 1.5 Normal Femoral Neck (Right) 0.639 -1.9 0.6 Osteopenia Total Hip (Right) 0.760 -1.5 0.8 Osteopenia Total Hip Mean 0.805 -1.2 1.2 Osteopenia World Health Organization criteria for BMD impression classify patients as: Normal (T-score at or above -1.0), Osteopenia (T-score between -1.0 and -2.5), or Osteoporosis (T-score at or below -2.5). 10-year Fracture Risk: FRAX not reported because: Treated for osteoporosis Clinical Information Provided by Patient: Parent has had a hip fracture Is being treated for osteoporosis Has used the following medications: Prolia (i.e. denosumab), Calcium Has the following medical conditions: Hysterectomy Patient maximum height was 67 Menopause Age: 50 Drinks caffeinated beverages Onset of menses at age 12 Number of children 2 Impression: The patient has low bone mass, based on the Right Femoral Neck T-score. The patient has risk factors, including: parental hip fracture. Discussion: It is important to ask patients whether they are taking their medications and to encourage continued and appropriate compliance with their osteoporosis therapies to reduce fracture risk. It is also important to review their risk factors and encourage appropriate calcium and vitamin D intakes, exercise, fall prevention and other lifestyle measures. Follow-Up: Consider a repeat BMD and Vertebral Fracture Assessment (VFA) exam in 2 years or sooner if medically necessary, to reassess this patient's status. Reported by: LUZ on 11/11/2023 10:47:00 AM. Reviewed, dictated and finalized at location ABala JULES
== END 2023-11-11 10:28 | disposition home or self-care (01) ==
LOC: ANHIMG 10:28
PROVIDERS: PCP Family Medicine; Visit Provider Family Medicine
DX: M81.0 Age-related osteoporosis without current pathological fracture (principal); M85.852 Other specified disorders of bone density and structure, left thigh; M85.851 Other specified disorders of bone density and structure, right thigh
CPT/HCPCS: 77080

== ENCOUNTER 2023-12-11 12:27 | Outpatient (CLI) | payer MEDICARE, OTHER, SELFPAY ==
--- NOTE | ~2023-12-11 | XR_ITS ---
Cervical Spine: AP, lateral, open-mouth views Clinical History: Pain Findings: There is straightening of normal cervical lordosis. The vertebral bodies and posterior sher ments appear intact. The intervertebral disc spaces are well maintained. Mild facet arthropathy note d. Pre-vertebral soft tissues are unremarkable. Impression: Straightening of the normal cervical lordosis. Mild facet arthropathy. Reviewed, dictated and finalized at location . Impression: Straightening of the normal cervical lordosis. Mild facet arthropathy.
== END 2023-12-11 12:28 | disposition home or self-care (01) ==
LOC: ANHIMG 12:32
PROVIDERS: PCP Family Medicine
DX: M54.2 Cervicalgia (principal)
CPT/HCPCS: 72040

== ENCOUNTER 2024-01-06 08:15 | Outpatient (CLI) | payer MEDICARE, OTHER, SELFPAY ==
--- NOTE | ~2024-01-06 | MM_ITS ---
EXAMINATION: MM screening gabe BI w dani HISTORY: Screening TECHNIQUE: Craniocaudal and mediolateral oblique 3-D tomosynthesis images were obtained and synthetic 2-D images were generated. CAD analysis was submitted and interpreted. COMPARISON: Comparison to multiple prior studies sequentially, with oldest reviewed study dated 04/21. BREAST PARENCHYMAL COMPOSITION: Not dense: There are scattered areas of fibroglandular density. FINDINGS: There is no evidence of suspicious mass, calcification, or architectural distortion to sugg est malignancy in either breast. There has been no suspicious interval change. IMPRESSION: 1. No mammographic evidence of malignancy. 2. Recommend routine screening mammography in one year. BI-RADS Category 1: Negative Reviewed, dictated and finalized at location B.
== END 2024-01-06 08:16 | disposition home or self-care (01) ==
LOC: ANHIMG 08:17
PROVIDERS: PCP Family Medicine; Visit Provider Family Medicine
DX: Z12.31 Encounter for screening mammogram for malignant neoplasm of breast (principal)
CPT/HCPCS: 77063; 77067

== ENCOUNTER 2024-04-27 12:32 | Outpatient (CLI) | payer MEDICARE, OTHER, SELFPAY ==
[2024-04-27 13:59] LABS: Basophils Percent Auto 0.4 % (0.2-1.2); Eosinophils Percent Auto 0.3 % (0-4.4); Hemoglobin 14.6 g/dL (12.0-15.0); Immature Granulocyte Absolute 0.06 K/mm3 (0.00-0.031); Immature Granulocyte Percent A 0.7 % (0-0.5); Lymphocytes Absolute Auto 1.26 K/mm3 (0.9-3.2); Lymphocytes Percent Auto 13.7 % (18.3-44.2); Mean Corpuscular HGB Conc 32.4 g/dl (32-36); Mean Corpuscular Hemoglobin 31.3 pg (26-34); Mean Corpuscular Volume 96.4 fl (80-100); Mean Platelet Volume 10.4 fl (7.4-10.4); Monocytes Absolute Auto 0.7 K/mm3 (0.1-0.6); Monocytes Percent Auto 7.5 % (2.6-8.5); Neutrophils Absolute Auto 7.2 K/mm3 (1.3-6.7); Neutrophils Percent Auto 77.4 % (45.5-73.1); Platelet Count Result 201 k/mm3 (150-375); Red Blood Count 4.67 M/mm3 (4.2-5.4); Red Cell Distribution Width 13.2 % (11.5-14.5); White Blood Count 9.2 K/mm3 (4.5-10.0)
[2024-04-27 14:52] LABS: Alanine Aminotransferase 41 U/L (6-35); Albumin Level 4.3 g/dL (3.5-5.1); Alkaline Phosphatase 65 U/L (38-126); Anion Gap 6 mmol/L (4-12); Aspartate Amino Transferase 57 U/L (14-36); Bilirubin,Total 0.6 mg/dL (0.2-1.3); Blood Urea Nitrogen 23 mg/dL (7-17); Calcium 9.5 mg/dL (8.4-10.2); Carbon Dioxide 32 mmol/L (22-30); Chloride 98 mmol/L (98-107); Estimated Glomerular Filt Rate 60; Glucose 104 mg/dL (65-110); Potassium 4.7 mmol/L (3.4-5.0); Sodium 136 mmol/L (137-145)
[2024-04-27 15:23] LABS: Iron 136 ug/dL (37-170)
[2024-04-27 15:33] LABS: Percent Iron Saturation 48 % (20-50)
== END 2024-04-27 12:33 | disposition home or self-care (01) ==
PROVIDERS: PCP Family Medicine; Visit Provider Nurse Practitioner Family
DX: L29.9 Pruritus, unspecified (principal); N18.31 Chronic kidney disease, stage 3a; R74.8 Abnormal levels of other serum enzymes
CPT/HCPCS: 36415; 80053; 82728; 83540; 83550; 85025

== ENCOUNTER 2024-05-04 08:42 | Outpatient (CLI) | payer MEDICARE, OTHER, SELFPAY ==
--- NOTE | ~2024-05-04 | US_ITS ---
Abdominal Sonogram: Real-time sonographic imaging of the abdomen was performed. Clinical History: Pruritus Findings: The liver appears normal with no evidence of mass lesion or bile duct dilatation. Main por sky vein demonstrates normal direction of flow. The spleen is normal in size without evidence of foca l lesion. The gallbladder is well distended, and appears normal with no evidence of gallstone or wal l thickening. The common bile duct measures 3 mm. The visualized pancreas, aorta, and IVC are unrema rkable. The right kidney measures 8.3 cm in length and the left kidney measures 8.4 cm. There is no hydronephrosis or renal calculus. Impression: Unremarkable abdominal ultrasound. Reviewed, dictated and finalized at location . Impression: Unremarkable abdominal ultrasound.
== END 2024-05-04 08:43 | disposition home or self-care (01) ==
LOC: MICIMG 08:43
PROVIDERS: PCP Family Medicine; Visit Provider Nurse Practitioner Family
DX: L29.9 Pruritus, unspecified (principal); R74.8 Abnormal levels of other serum enzymes
CPT/HCPCS: 76700

== ENCOUNTER 2024-10-26 15:22 | Outpatient (CLI) | payer MEDICARE, OTHER, SELFPAY ==
--- OUTSIDE RECORDS SUMMARY | 2024-10-26 16:40 | XMS_ITS | Encounter Summary ---
Author Organization [facility] Address [address] [place] [address] Care Team Providers Care Supervisor Fabrication And Assembly Name Role Phone Unavailable Primary Care Provider Vikram e Encounter Details Date Type Department Care Team (Late st Contact Info) Description 10/08/2002 Outpatient Historical [facility] [address] [place] [address] Umair Chavis ([facility]) Social History Tobacco Use Types Packs/Day Years Used Date Smoking Tobacco: Never Assessed Comments Unknown Sex and Gender Information Value Date Recorded Sex Assigned at Not on file Legal Sex Female 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
--- OUTSIDE RECORDS SUMMARY | 2024-10-26 16:40 | XMS_ITS | Clinical Summary ---
[facility] Address [address] [place] [address] Care Team Providers Care Operations Vocational Instructor Name Role Phone Cassandra Portillo MD Primary Care Provider + Darío Tsai MD Unavailable [phone] Allergies Active Allergy Reactions Criticality Noted Date Comments Iodinated Contrast Media Itching,Rash Medium 2 Dye Itching High 05/21/[address] scan Warfarin Itching Low 03/26/2012 Reaction: Itching, Itching Medications amitriptyline (ELAVIL) 10 mg tablet 8 Active levothyroxine (SYNTHROID, LEVOTHROID) 50 mcg tablet 8 Active denosumab (PROLIA) 60 mg/mL syringeIndicatio ns:Post-Menopaus al Osteoporosis,boby ry 6 months Inject under the skin once Active multivitamin capsule Take 1 capsule by mouth daily Active cranberry 500 mg capsule Take by mouth daily. Active hydrOXYchloroQUI NE (PLAQUENIL) 200 mg tablet Take 2 tablets (400 mg total) by mouth daily 1 Active famotidine (PEPCID) 20 mg tablet Take 1 tablet (20 mg total) by mouth 2 (two) times a day Active fludrocortisone 0.1 mg tabletIndication s:Syncope and collapse,Idiopat hic hypotension Take 1 tablet (0.1 mg total) by mouth daily 90 tablet 5 10/12/19 26 Active fludrocortisone 0.1 mg tabletIndication s:Syncope and collapse,Idiopat hic hypotension Take 1 tablet (0.1 mg total) by mouth daily 90 tablet 3 3 10/12/19 25 Discontinu ed(Reorder ) Active Problems Problem Noted Date Diagnosed Date Allodynia 07/22/2024 Spasms of the hands or feet 07/22/2024 Status post placement of implantable loop record er 11/20/2022 Overview (11/20/2022): [employer] Loop Recorder. Dx; Syncope, PVC's. DOI 11/20/2022-[place]. [facility]. Biotronik remote monitoring. 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 PVC's (premature ventricular contractions) 10/09 Essential tremor 11/28/2021 Esophageal dysphagia 05/18/2018 Overview (05/18/2018): Added automatically from request for surgery [id number] Gastroesophageal reflux disease without esophagi tis 05/18/2018 Overview (05/18/2018): Added automatically from request for surgery [id number] Resolved Problems Problem Noted Date Diagnosed Date Resolved Date Itching 02/27/2023 07/22/2024 Encounters Date Type Department Care Team Description 10/11/2024 7:30 AM CDT Ancillary Procedure [facility] [address] [place] [address] [place] [id number] Status post placement of implantable loop recorder (Primary Dx); PVC's (premature ventricular contractions); Syncope and collapse 08/30/2024 7:15 AM PARLOR CHAPERONE Ancillary Procedure [facility] [address] [place] [address] [place] [id number] Status post placement of implantable loop recorder (Primary Dx); PVC's (premature ventricular contractions); Syncope and collapse 08/30/2024 Orders Only [facility] [address] [place] [address] [place] [address] Yoli Acuna MD Syncope and collapse (Primary Dx); Status post placement of implantable loop recorder; PVC's (premature ventricular contractions) from Last 3 Months Surgical History Surgery Date Site/Laterality Comments TONSILLECTOMY tonsillectomy OTHER SURGICAL HISTORY 1960 Breast lump: fine needle aspiration HYSTERECTOMY 1998 Hysterectomy Medical History Medical History Date Comments Hx Other Medical Breast lump PONV (postoperative nausea and vomiting) Dysphagia GERD (gastroesophageal reflux disease) Hypothyroidism Cataract Lupus PVC's (premature ventricular contractions) Syncope Suspect vasovaga l or orthostatic Family History Medical History Relation Name Comments Liver disease Father Liver disease; Cause of : Liver disease Osteoporosis Mother Osteoporosis; Relation Name Status Comments Father (Age 83) Mother Social History Tobacco Use Types Packs/Day Years Used Date Smoking Tobacco: Never Smokeless Tobacco: Never Tobacco Cessation:Counseling Given: Not Answered Alcohol Use Standard Drinks/Week Comments No 0 (1 standard drink = 0.6 oz pur e alcohol) Comments Unknown Sex and Gender Information Value Date Recorded Sex Assigned at Not on file Legal Sex Female 2:29 AM PARLOR CHAPERONE Gender Identity Not on file Sexual Orientation Not on file Obstetrics History Last Filed Vital Signs Vital Sign Reading Time Taken Comments Blood Pressure 104/65 07/22/2024 8:13 AM PARLOR CHAPERONE Pulse 80 07/22/2024 8:13 AM PARLOR CHAPERONE Temperature 36.7 C (98 F) 11/27/2021 2:28 PM CDT Respiratory Rate 12 11/27/2021 2:28 PM CDT Oxygen Saturation 91% 07/22/2024 8:13 AM PARLOR CHAPERONE Inhaled Oxygen Concentration - - Weight 53.8 kg (118 lb 9.6 oz) 07/22/2024 8:13 A M PARLOR CHAPERONE Height 167.6 cm (5' 5.98 ) 07/22/2024 8:13 AM CS T Body Mass Index 19.15 07/22/2024 8:13 AM PARLOR CHAPERONE Plan of Treatment Health Maintenance Due Date Last Done Comments Depression Screening 1940 Fall Risk Assessment 1940 Osteoporosis Screening-Bone Density Scan 1940 DTaP/Tdap/Td Vaccine (1 - Tdap) 1951 Hepatitis B Screening 1958 Pneumococcal vaccine 65+ (1 of 2 - PCV) 1959 Well Visit 65+ 2005 Covid-19 Vaccine ( - 2023-2 5 season) 2024 04/18/2021, 10/08/2020, 09/17/2020 Influenza Vaccine (#1) 2024 0, 04/23/2019, 04/19/2018, Additional history exists Zoster Vaccine Completed 05/04/2018, 02/28/2018 Procedures Procedure Name Priority Date/Time Associated Diagnosis Comments DEVICE CHECK - REMOTE Routine 10/12/2024 7:47 AM CDT PVC's (premature ventricular contractions) Syncope and collapse DEVICE CHECK - REMOTE Routine 08/30/2024 10:00 AM PARLOR CHAPERONE PVC's (premature ventricular contractions) Syncope and collapse DEVICE CHECK - REMOTE Routine 07/30/2024 11:43 AM PARLOR CHAPERONE PVC's (premature ventricular contractions) Syncope and collapse from Last 3 Months Results * DEVICE CHECK - REMOTE (10/12/2024 7:47 AM CDT) Anatomical Region Laterality Modality Other Narrative 10/14/2024 10:39 AM CDT [employer] Loop Recorder. Dx; Syncope, PVC's. DOI 11/20/2022-[place]. [facility]. Biotronik remote monitoring. Routine ILR remote. Normal device function. Battery function-Ok. Presenting rhythm: VS, regular 76 bpm. Medications: no cardiac meds listed. Counters since last scheduled transmission on 08/30/2024. No auto or patient recorded episodes noted. 329 Ectopic beats. See scanned report. Bio[employer]ik remote f/u 11/22/2024. Cami Cunningham RN us [facility] Alisson Acuna MD [facility] CARDIAC SERVICES PRO CEDURES Final Result * DEVICE CHECK - REMOTE (08/30/2024 10:00 AM PARLOR CHAPERONE) Anatomical Region Laterality Modality Other Narrative 09/09/2024 8:14 AM PARLOR CHAPERONE Biotronik lllm implanted on November 20, 2022 for syncope. Patient had a routine remote transmission on August 30, 2024 Medications: None Interrogation of the patients device demonstrates appropriate loop function (0) Symptom events Auto Device detected events of, (0) Pause, (0) Bradycardia, (0) Tachy, (0) AT, (0) AF, Presenting Rhythm: Normal sinus rhythm at 77 bpm Battery: OK Plan: 1) Scheduled routine remote with no new episode. 2) Continue to monitor remotely. Braxton Gonzalez Device Rigging Man [phone] Yoli Acuna MD CV CARDIAC SERVICES PRO CEDURES Final Result * DEVICE CHECK - REMOTE (07/30/2024 11:43 AM PARLOR CHAPERONE) Anatomical Region Laterality Modality Other Narrative 08/19/2024 3:08 PM PARLOR CHAPERONE Biotronik lllm implanted on November 20, 2022 for syncope. Patient had a routine remote transmission on July 26, 2024 Medications: None Interrogation of the patients device demonstrates appropriate loop function (0) Symptom events Auto Device detected events of, (0) Pause, (0) Bradycardia, (0) Tachy, (0) AT, (0) AF, Presenting Rhythm: Normal sinus rhythm at 65 bpm Battery: OK Plan: 1) Scheduled routine remote with no new episode. 2) Continue to monitor remotely. 3) Send letter to patient. Yoli Acuna MD CV CARDIAC SERVICES PRO CEDURES Final Result from Last 3 [place] [address] [address] [facility] [place] [address] MEDICARE [facility] MEDICARE [place] JANIS JOSHI Advance Directives For more information, please contact: [phone] * Full Code (Latest Code Status on File) Date Activated Date Inactivated Comments 05/21/2018 11:24 AM 05/21/2018 3:19 PM * Full Code Date Activated Date Inactivated Comments 05/21/2018 11:24 AM 05/21/2018 11:24 AM Care Teams Operations Vocational Instructor Relationship Specialty Start Date End Date Cassandra Portillo MD PCP - General Family Medicine 05/14/18 Darío Tsai MD [address] [place] [address] Referring Physician Dermatology 02/27/21
--- OUTSIDE RECORDS SUMMARY | 2024-10-26 16:40 | XMS_ITS | Clinical Summary ---
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
--- OUTSIDE RECORDS SUMMARY | 2024-10-26 16:40 | XMS_ITS | Clinical Summary ---
Author Organization [facility] Address [address] [place] [address] Care Team Providers Care Employment Interviewer Name Role Phone Unavailable Primary Care Provider Unavailabl e Source Comments [facility],non-owned Affiliates and Associated Physician Practices is amultiple site organization consisting of ambulatory clinics and hospital sitesin [place], [place], [place] and [place]. This disclosure is being madepursuant to the Care Everywhere program and may not contain all information available regarding this patient. Last updated 18.[facility] [employer] Social History Tobacco Use Types Packs/Day Years Used Date Smoking Tobacco: Never Assessed Sex and Gender Information Value Date Recorded Sex Assigned at Not on file Gender Identity Not on file Sexual Orientation Not on file Plan of Treatment Health Maintenance Due Date Last Done Comments BONE DENSITY TESTING 1940 MEDICARE AWV 12 MONTHS 1940 DTAP/TDAP/TD VACCINES (1 - Tdap) 1959 PNEUMOCOCCAL VACCINE 50+ (1 of 1 - PCV) 1990 ZOSTER VACCINE (1 of 2) 1990 Respiratory Syncytial Virus (RSV) Vaccine Pt: or over 60 yrs (1 - 1-dose 75+ series) 2015 COVID-19 VACCINE ( - 2023-2 5 season) 2024 INFLUENZA VACCINE (#1) 2024 DEPRESSION SCREENING 07/21/2024 HEPATITIS B VACCINE Aged Out No longe r eligible based on patient's age to complete this topic HIB VACCINE Aged Out No longer eligi ble based on patient's age to complete this topic HPV VACCINE Aged Out No longer eligi ble based on patient's age to complete this topic MENINGOCOCCAL (Group B) VACC INE SHARED DECISION-MAKING Aged Out No longer eligibl e based on patient's age to complete this topic MENINGOCOCCAL GROUPS A/C/Y/W VACCINE Aged Out No longer eligible b ased on patient's age to complete this topic
--- OUTSIDE RECORDS SUMMARY | 2024-10-26 16:40 | XMS_ITS | Encounter Summary ---
Author Organization [facility] Address [address] [place] [address] Care Team Providers Care Oracle Etl Developer Name Role Phone Unavailable Primary Care Provider Unavailabl e Encounter Details Date Type Department Care Team (Late st Contact Info) Description 08/02/[address] [facility] DermPath Lab [address] [place] [phone] Darío Tsai MD [address] [place], [place] [id number] Social History Tobacco Use Types Packs/Day Years Used Date Smoking Tobacco: Never Assessed Sex and Gender Information Value Date Recorded Sex Assigned at Not on file Gender Identity Not on file Sexual Orientation Not on file documented as of this encounter Plan of Treatment Not on file documented as of this encounter Procedures Procedure Name Priority Date/Time Associated Diagnosis Comments DERMATOPATHOLOGY Routine 07/30/2019 12:0 0 AM GAS PLANT WORKER documented in this encounter Results * DERMATOPATHOLOGY (07/30/2019 12:00 AM GAS PLANT WORKER) Case Report Dermatopathology Report Case: [id number] Authorizing Provider: Darío Tsai MD Collected: 07/30/2019 12:00 AM Ordering Location: [facility] Care DermPath Lab Received: 08/02/2019 12:15 PM Pathologist: Vilma Campo MD Specimen: Skin, bilat great toenails 0 1:57 PM GAS PLANT WORKER DERMATOPATHOLOGY LABORATORY Final Diagnosis Specimen A. SKIN, bilat great toenails: COMPACT KERATIN CONSISTENT WITH NAIL PLATE (L60.8) 0 1:57 PM GAS PLANT WORKER DERMATOPATHOLOGY LABORATORY Clinical History PAS stain, R/O onychomycosis. 0 1:57 PM GAS PLANT WORKER DERMATOPATHOLOGY LABORATORY Gross Description Specimen A: Received is one formalin filled container labeled with the patient's name and designated bilat great toenails. The specimen consists of a nail clipping (4 pieces) measuring [id number], [id number], [id number], & [id number]. 0 1:57 PM GAS PLANT WORKER DERMATOPATHOLOGY LABORATORY Microscopic Description Specimen A. SKIN, bilat great toenails: Sections show nail plate. Periodic acid-Ricky (PAS) stained sections do not highlight fungal organisms. Bacteria are identified. 0 1:57 PM GAS PLANT WORKER DERMATOPATHOLOGY LABORATORY Disclaimer An external and internal positive and negative controls are appropriate for the histochemical, immunohistochemical and immunofluorescence stain(s) in this case (if any), except where stated explicitly. The performance characteristics of the stain(s) cited in this report were developed and its performance characteristic determined by the Dermatopathology Laboratory at [facility], directed by Dr. Tarun Tovar. These tests need not be, and therefore are not, approved by the [place] Food and Drug Administration. The tests are used for clinical purposes. Billing Codes Specimen Charges Stain Charges 95902 1 31848 1 0 1:57 PM GAS PLANT WORKER DERMATOPATHOLOGY LABORATORY Embedded Images 0 1:57 PM GAS PLANT WORKER DERMATOPATHOLOGY LABORATORY Pathology/Cytolog y TISSUE SPECIMEN FROM SKIN / Unknown 07/30/2019 08/02/2019 12:15 PM GAS PLANT WORKER Darío Tsai MD LAB - PATHOLOGY/CYTO LOGY ORDERABLES DERMATOPATHOLOGY LABORATORY [facility] - Department of Dermatology [address] [place] [address], [address] [place] [address], [facility] [phone] documented in this encounter Visit Diagnoses Not on filedocumented in this encounter
--- OUTSIDE RECORDS SUMMARY | 2024-10-26 16:40 | XMS_ITS | Encounter Summary ---
Author Organization [facility] Address [address] [place] [address] Care Team Providers Care Family Psychologist Name Role Phone Unavailable Primary Care Provider Vikram e Encounter Details Date Type Department Care Team (Late st Contact Info) Description 11/09/2004 Outpatient Historical [facility] [address] [facility] [facility] [address] [address] [place] [address] Umair Chavis ([facility]) Social History Tobacco Use Types Packs/Day Years Used Date Smoking Tobacco: Never Assessed Comments Unknown Sex and Gender Information Value Date Recorded Sex Assigned at Not on file Legal Sex Female 3:57 AM 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
--- OUTSIDE RECORDS SUMMARY | 2024-10-26 16:40 | XMS_ITS | Encounter Summary ---
Author Organization [facility] Address [address] [place] [address] Care Team Providers Care Business Analyst Ecommerce Name Role Phone Unavailable Primary Care Provider Vikram e Encounter Details Date Type Department Care Team (Late st Contact Info) Description 12/02/2000 Outpatient Historical [facility] [address] [facility] [address] [place] [address] Umair Chavis ([facility]) Social History Tobacco Use Types Packs/Day Years Used Date Smoking Tobacco: Never Assessed Comments Unknown Sex and Gender Information Value Date Recorded Sex Assigned at Not on file Legal Sex Female 3:57 AM 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
--- OUTSIDE RECORDS SUMMARY | 2024-10-26 16:40 | XMS_ITS | Encounter Summary ---
Author Organization [facility] Address [address] [place] [address] Care Team Providers Care Telecommunications Network Planner Name Role Phone Unavailable Primary Care Provider Vikram e Encounter Details Date Type Department Care Team (Late st Contact Info) Description 10/13/2003 Outpatient Historical [facility] [address] [place] [address] Umair Chavis ([facility]) Social History Tobacco Use Types Packs/Day Years Used Date Smoking Tobacco: Never Assessed Comments Unknown Sex and Gender Information Value Date Recorded Sex Assigned at Not on file Legal Sex Female 3:57 AM RN CASE MGR Gender Identity Not on file Sexual Orientation Not on file documented as of this encounter Plan of Treatment Not on file documented as of this encounter Visit Diagnoses Not on filedocumented in this encounter
--- OUTSIDE RECORDS SUMMARY | 2024-10-26 16:40 | XMS_ITS | Encounter Summary ---
Author Organization [facility] Address [address] [place] [address] Care Team Providers Care Technical Service Representative Name Role Phone Unavailable Primary Care Provider Vikram e Encounter Details Date Type Department Care Team (Late st Contact Info) Description 10/04/1999 Outpatient Historical [facility] [address] [place] [address] Umair Chavis ([facility]) Social History Tobacco Use Types Packs/Day Years Used Date Smoking Tobacco: Never Assessed Comments Unknown Sex and Gender Information Value Date Recorded Sex Assigned at Not on file Legal Sex Female 3:57 AM MACHINE LONG GOODS HELPER Gender Identity Not on file Sexual Orientation Not on file documented as of this encounter Plan of Treatment Not on file documented as of this encounter Visit Diagnoses Not on filedocumented in this encounter
--- OUTSIDE RECORDS SUMMARY | 2024-10-26 16:40 | XMS_ITS | Encounter Summary ---
Author Organization [facility] Address [address] [place] [address] Care Team Providers Care Aerophysicist Name Role Phone Unavailable Primary Care Provider Vikram e Encounter Details Date Type Department Care Team (Late st Contact Info) Description 11/14/2005 Outpatient Historical [facility] [address] [place] [address] Umair Chavis ([facility]) Social History Tobacco Use Types Packs/Day Years Used Date Smoking Tobacco: Never Assessed Comments Unknown Sex and Gender Information Value Date Recorded Sex Assigned at Not on file Legal Sex Female 3:57 AM WATER/WASTEWATER ENGINEER Gender Identity Not on file Sexual Orientation Not on file documented as of this encounter Plan of Treatment Not on file documented as of this encounter Visit Diagnoses Not on filedocumented in this encounter
--- OUTSIDE RECORDS SUMMARY | 2024-10-26 16:40 | XMS_ITS | Encounter Summary ---
Author Organization [facility] Address [address] [place] [address] Care Team Providers Care Document Advisor Name Role Phone Unavailable Primary Care Provider Vikram e Encounter Details Date Type Department Care Team (Late st Contact Info) Description 10/10/[address] [facility] [address] [place] [address] Umair Chavis ([facility]) Social History Tobacco Use Types Packs/Day Years Used Date Smoking Tobacco: Never Assessed Comments Unknown Sex and Gender Information Value Date Recorded Sex Assigned at Not on file Legal Sex Female 3:57 AM CERTIFIED MEDICAL TRANSCRIPTIONIST Gender Identity Not on file Sexual Orientation Not on file documented as of this encounter Plan of Treatment Not on file documented as of this encounter Visit Diagnoses Not on filedocumented in this encounter
--- OUTSIDE RECORDS SUMMARY | 2024-10-26 16:40 | XMS_ITS | Encounter Summary ---
Author Organization [facility] Address [address] [place] [address] Care Team Providers Care Manufacturing Production Manager Name Role Phone Unavailable Primary Care Provider iVkram e Encounter Details Date Type Department Care Team (Late st Contact Info) Description 11/12/2001 Outpatient Historical [facility] [address] [place] [address] Umair Chavis ([facility]) Social History Tobacco Use Types Packs/Day Years Used Date Smoking Tobacco: Never Assessed Comments Unknown Sex and Gender Information Value Date Recorded Sex Assigned at Not on file Legal Sex Female 3:57 AM LIGHT BULB ASSEMBLER Gender Identity Not on file Sexual Orientation Not on file documented as of this encounter Plan of Treatment Not on file documented as of this encounter Visit Diagnoses Not on filedocumented in this encounter
--- OUTSIDE RECORDS SUMMARY | 2024-10-26 16:40 | XMS_ITS | Referral Summary ---
Author Organization [facility] Address [address] [place] [address] Care Team Providers Care Resort Housekeeper Name Role Phone Cassandra Portillo MD Primary Care Provider + Darío Tsai MD Unavailable [phone] Encounters Date Type Department Care Team Description 10/11/2024 7:30 AM CDT Ancillary Procedure [facility] Cardiology [address] [place] [phone] Status post placement of implantable loop recorder (Primary Dx); PVC's (premature ventricular contractions); Syncope and collapse 08/30/2024 Orders Only [facility] Cardiology [address] [place] [phone] Yoli Acuna MD Syncope and collapse (Primary Dx); Status post placement of implantable loop recorder; PVC's (premature ventricular contractions) 08/30/2024 7:15 AM CANDY FORMING MACHINE OPERATOR Ancillary Procedure [facility] Cardiology [address] [place] [phone] Status post placement of implantable loop recorder (Primary Dx); PVC's (premature ventricular contractions); Syncope and collapse from Last 3 Months Allergies Active Allergy Reactions Criticality Noted Date [...] implantable loop record er 11/20/2022 Overview (11/20/2022): [employer] Loop Recorder. Dx; Syncope, PVC's. DOI 11/20/2022-[place]. [facility]. [employer] remote monitoring. 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 PVC's (premature ventricular contractions) 10/09 Essential tremor 11/28/2021 Esophageal dysphagia 05/18/2018 Overview (05/18/2018): Added automatically from request for surgery [id number] Gastroesophageal reflux disease without esophagi tis 05/18/2018 Overview (05/18/2018): Added automatically from request for surgery [id number] Resolved Problems Problem Noted Date Diagnosed Date Resolved Date Itching 02/27/2023 07/22/2024 Social History Tobacco Use Types Packs/Day Years Used Date Smoking Tobacco: Never Smokeless Tobacco: Never Tobacco Cessation:Counseling Given: Not Answered Alcohol Use Standard Drinks/Week Comments No 0 (1 standard drink = 0.6 oz pur e alcohol) Comments Unknown Sex and Gender Information Value Date Recorded Sex Assigned at Not on file Legal Sex Female 2:29 AM CANDY FORMING MACHINE OPERATOR Gender Identity Not on file Sexual Orientation Not on file Last Filed Vital Signs Vital Sign Reading Time Taken Comments Blood Pressure 104/65 07/22/2024 8:13 AM CANDY FORMING MACHINE OPERATOR Pulse 80 07/22/2024 8:13 AM CANDY FORMING MACHINE OPERATOR Temperature 36.7 C (98 F) 11/27/2021 2:28 PM CDT Respiratory Rate 12 11/27/2021 2:28 PM CDT Oxygen Saturation 91% 07/22/2024 8:13 AM CANDY FORMING MACHINE OPERATOR Inhaled Oxygen Concentration - - Weight 53.8 kg (118 lb 9.6 oz) 07/22/2024 8:13 A M CANDY FORMING MACHINE OPERATOR Height 167.6 cm (5' 5.98 ) 07/22/2024 8:13 AM CS T Body Mass Index 19.15 07/22/2024 8:13 AM CANDY FORMING MACHINE OPERATOR Plan of Treatment Not on file Procedures Procedure Name Priority Date/Time Associated Diagnosis Comments DEVICE CHECK - REMOTE Routine 10/12/2024 7:47 AM CDT PVC's (premature ventricular contractions) Syncope and collapse DEVICE CHECK - REMOTE Routine 08/30/2024 10:00 AM CANDY FORMING MACHINE OPERATOR PVC's (premature ventricular contractions) Syncope and collapse DEVICE CHECK - REMOTE Routine 07/30/2024 11:43 AM CANDY FORMING MACHINE OPERATOR PVC's (premature ventricular contractions) Syncope and collapse from Last 3 Months Results * DEVICE CHECK - REMOTE (10/12/2024 7:47 AM CDT) Anatomical Region Laterality Modality Other Narrative 10/14/2024 10:39 AM CDT [employer] Loop Recorder. Dx; Syncope, PVC's. DOI 11/20/2022-[place]. [facility]. [employer] remote monitoring. Routine ILR remote. Normal device function. Battery function-Ok. Presenting rhythm: VS, regular 76 bpm. Medications: no cardiac meds listed. Counters since last scheduled transmission on 08/30/2024. No auto or patient recorded episodes noted. 329 Ectopic beats. See scanned report. [employer] remote f/u 11/22/2024. Cami Cunningham RN Yoli Acuna MD [facility] PRO CEDURES Final Result * DEVICE CHECK - REMOTE (08/30/2024 10:00 AM CANDY FORMING MACHINE OPERATOR) Anatomical Region Laterality Modality Other Narrative 09/09/2024 8:14 AM CANDY FORMING MACHINE OPERATOR Biotronik lllm implanted on November 20, 2022 [...] Continue to monitor remotely. Braxton Gonzalez Device Emergency Man [phone] Yoli Acuna MD [facility] CARDIAC SERVICES PRO CEDURES Final Result * DEVICE CHECK - REMOTE (07/30/2024 11:43 AM CANDY FORMING MACHINE OPERATOR) Anatomical Region Laterality Modality Other Narrative 08/19/2024 3:08 PM CANDY FORMING MACHINE OPERATOR [employer]ot[employer]ik lllm implanted on November 20, 2022 [...] monitor remotely. 3) Send letter to patient. [facility] Alisson Acuna MD CV CARDIAC SERVICES PRO CEDURES Final Result from Last 3 Months Insurance MEDICARE [facility] [place] [address] [place] [address] MEDICARE [facility] MEDICARE [facility] Advance Directives For more information, please contact: [phone] * Full Code (Latest Code Status on File) Date Activated Date Inactivated Comments 05/21/2018 11:24 AM 05/21/2018 3:19 PM * Full Code Date Activated Date Inactivated Comments 05/21/2018 11:24 AM 05/21/2018 11:24 AM Care Teams Resort Housekeeper Relationship Specialty Start Date End Date Cassandra Portillo MD PCP - General Family Medicine 05/14/18 Darío Tsai MD [address] [place] [address] Referring Physician Dermatology 02/27/21
[2024-10-26 19:06] LABS: Basophils Percent Auto 0.5 % (0.2-1.2); Eosinophils Absolute Auto 0.1 K/mm3 (0-0.3); Eosinophils Percent Auto 1.1 % (0-4.4); Hematocrit 43.8 % (37.0-47.0); Immature Granulocyte Absolute 0.02 K/mm3 (0.00-0.031); Immature Granulocyte Percent A 0.3 % (0-0.5); Lymphocytes Absolute Auto 1.76 K/mm3 (0.9-3.2); Mean Corpuscular Hemoglobin 30.5 pg (26-34); Mean Corpuscular Volume 95.4 fl (80-100); Mean Platelet Volume 10.7 fl (7.4-10.4); Monocytes Absolute Auto 0.7 K/mm3 (0.1-0.6); Monocytes Percent Auto 10.7 % (2.6-8.5); Neutrophils Percent Auto 60.4 % (45.5-73.1); Platelet Count Result 193 k/mm3 (150-375); Red Blood Count 4.59 M/mm3 (4.2-5.4); Red Cell Distribution Width 13.2 % (11.5-14.5); White Blood Count 6.5 K/mm3 (4.5-10.0)
[2024-10-26 20:38] LABS: Alanine Aminotransferase 38 U/L (6-35); Albumin Level 4.3 g/dL (3.5-5.1); Alkaline Phosphatase 73 U/L (38-126); Anion Gap 7 mmol/L (4-12); Aspartate Amino Transferase 43 U/L (14-36); Bilirubin,Total 0.4 mg/dL (0.2-1.3); Blood Urea Nitrogen 25 mg/dL (7-17); Calcium 9.1 mg/dL (8.4-10.2); Carbon Dioxide 30 mmol/L (22-30); Chloride 100 mmol/L (98-107); Estimated Glomerular Filt Rate 45; Glucose 89 mg/dL (65-110); Sodium 137 mmol/L (137-145)
[2024-10-26 21:15] LABS: Iron 93 ug/dL (37-170)
[2024-10-26 21:29] LABS: Percent Iron Saturation 30 % (20-50)
[2024-10-26 21:47] LABS: Vitamin D 25 Hydroxy 36.3 ng/mL
== END 2024-10-26 15:23 | disposition home or self-care (01) ==
LOC: ANHGOSHLAB 15:23
PROVIDERS: PCP Family Medicine; Visit Provider Family Medicine
DX: E03.9 Hypothyroidism, unspecified (principal); G47.00 Insomnia, unspecified; L29.9 Pruritus, unspecified; N18.31 Chronic kidney disease, stage 3a; R74.8 Abnormal levels of other serum enzymes; Z78.0 Asymptomatic menopausal state
CPT/HCPCS: 36415; 80053; 82306; 82728; 83540; 83550; 84443; 85025

== ENCOUNTER 2024-11-12 03:28 | Day surgery (SDC) | payer MEDICARE, OTHER, SELFPAY ==
[2024-11-11 11:18] VITALS: BMI 19.1
--- OUTSIDE RECORDS SUMMARY | 2024-11-12 03:32 | XMS_ITS | Clinical Summary ---
Author Organization [facility] Address [address] [place] [address] [place] [address] Care Team Providers Care Oracle Applications Analyst Name Role Phone Unavailable Primary Care Provider Unavailabl e Social History Tobacco Use Types Packs/Day Years Used Date Smoking Tobacco: Never Assessed Comments Unknown Sex and Gender Information Value Date Recorded Sex Assigned at Not on file Legal Sex Female 3:57 AM STRUCTURAL MILL SUPERVISOR Gender Identity Not on file Sexual Orientation [...]
--- OUTSIDE RECORDS SUMMARY | 2024-11-12 03:32 | XMS_ITS | Encounter Summary ---
Author Organization [facility] Address [address] [place] [address] Care Team Providers Care Tanker Service Attendant Name Role Phone Unavailable Primary Care Provider Vikram e Encounter Details Date Type Department Care Team (Late st Contact Info) Description 12/02/2000 Outpatient Historical [facility] Head[facility] Center [address] [facility] [address] [place] [address] Umair Chavis ([facility]) Social History Tobacco Use Types Packs/Day Years Used Date Smoking Tobacco: Never Assessed Comments Unknown Sex and Gender Information Value Date Recorded Sex Assigned at Not on file Legal Sex Female 3:57 AM IC DESIGNER GATE ARRAYS Gender Identity Not on file Sexual Orientation Not on file documented as of this encounter Plan of Treatment Not on file documented as of this encounter Visit Diagnoses Not on filedocumented in this encounter
--- OUTSIDE RECORDS SUMMARY | 2024-11-12 03:32 | XMS_ITS | Encounter Summary ---
Author Organization [facility] Address [address] [place] [address] Care Team Providers Care Estimating Engineer Name Role Phone Unavailable Primary Care Provider Vikram e Encounter Details Date Type Department Care Team (Late st Contact Info) Description 10/10/1998 Outpatient Historical [facility] Center [address] [facility] [facility] [address] [place] [address] Umair Chavis ([facility]) Social History Tobacco Use Types Packs/Day Years Used Date Smoking Tobacco: Never Assessed Comments Unknown Sex and Gender Information Value Date Recorded Sex Assigned at Not on file Legal Sex Female 3:57 AM LEGAL RECRUITER Gender Identity Not on file Sexual Orientation Not on file documented as of this encounter Plan of Treatment Not on file documented as of this encounter Visit Diagnoses Not on filedocumented in this encounter
--- OUTSIDE RECORDS SUMMARY | 2024-11-12 03:32 | XMS_ITS | Encounter Summary ---
Author Organization [facility] Address [address] [place] [address] Care Team Providers Care Glass Blowing Instructor Name Role Phone Unavailable Primary Care Provider Vikram e Encounter Details Date Type Department Care Team (Late st Contact Info) Description 11/12/2001 Outpatient Historical [facility] Center [address] [facility] [address] [place] [address] Umair Chavis ([facility]) Social History Tobacco Use Types Packs/Day Years Used Date Smoking Tobacco: Never Assessed Comments Unknown Sex and Gender Information Value Date Recorded Sex Assigned at Not on file Legal Sex Female 3:57 AM FORECAST ANALYST Gender Identity Not on file Sexual Orientation Not on file documented as of this encounter Plan of Treatment Not on file documented as of this encounter Visit Diagnoses Not on filedocumented in this encounter
--- OUTSIDE RECORDS SUMMARY | 2024-11-12 03:32 | XMS_ITS | Encounter Summary ---
Author Organization [facility] Address [address] [place] [address] Care Team Providers Care Director Consumer Name Role Phone Unavailable Primary Care Provider Vikram e Encounter Details Date Type Department Care Team (Late st Contact Info) Description 10/08/2002 Outpatient Historical [facility] Center [address] [facility] [place] [address] Umair Chavis ([facility]) Social History Tobacco Use Types Packs/Day Years Used Date Smoking Tobacco: Never Assessed Comments Unknown Sex and Gender Information Value Date Recorded Sex Assigned at Not on file Legal Sex Female 3:[address] Gender Identity Not on file Sexual Orientation Not on file documented as of this encounter Plan of Treatment Not on file documented as of this encounter Visit Diagnoses Not on filedocumented in this encounter
--- OUTSIDE RECORDS SUMMARY | 2024-11-12 03:32 | XMS_ITS | Encounter Summary ---
Author Organization [facility] Address [address] [place] [address] Care Team Providers Care Family Advocate Name Role Phone Unavailable Primary Care Provider Vikram e Encounter Details Date Type Department Care Team (Late st Contact Info) Description 11/09/2004 Outpatient Historical [facility] [address] [facility] [place] [address] Umair Chavis ([facility]) Social History Tobacco Use Types Packs/Day Years Used Date Smoking Tobacco: Never Assessed Comments Unknown Sex and Gender Information Value Date Recorded Sex Assigned at Not on file Legal Sex Female 3:57 AM FAMILY HEALTH NURSE PRACTITIONER Gender Identity Not on file Sexual Orientation Not on file documented as of this encounter Plan of Treatment Not on file documented as of this encounter Visit Diagnoses Not on filedocumented in this encounter
--- OUTSIDE RECORDS SUMMARY | 2024-11-12 03:32 | XMS_ITS | Clinical Summary ---
Author Organization [facility] Address [address] [place] [address] Care Team Providers Care Software Program Manager Name Role Phone Unavailable Primary Care Provider Unavailabl e Source Comments [facility],non-owned Affiliates and Associated Physician Practices is amultiple site organization consisting of ambulatory clinics and hospital sitesin [place], [place], [place] and [place]. This disclosure is being madepursuant to the Care Everywhere program and may not contain all information available regarding this patient. Last updated 18.[facility] zealot network Social History Tobacco Use Types Packs/Day Years Used Date Smoking Tobacco: Never Assessed Comments Unknown Sex and Gender Information Value Date Recorded Sex Assigned at Not on file Legal Sex Female 11:55 AM MARKETING COMMUNICATIONS COORDINATOR Gender Identity Not on file Sexual Orientation Not on file Plan of Treatment Health Maintenance Due Date Last Done Comments BONE DENSITY TESTING 1940 DTAP/TDAP/TD VACCINES (1 - Tdap) 1959 PNEUMOCOCCAL VACCINE 50+ (1 of 1 - PCV) 1990 ZOSTER VACCINE (1 of 2) 1990 Respiratory Syncytial Virus (RSV) Vaccine Pt: or over 60 yrs (1 - 1-dose 75+ series) 2015 COVID-19 VACCINE ( - 2023-2 5 season) 2024 DEPRESSION SCREENING 07/21/2024 INFLUENZA VACCINE (Season Ended) 2025 HEPATITIS B VACCINE Aged Out No longe [...] on patient's age to complete [place] [address] MEDICARE [facility]
--- OUTSIDE RECORDS SUMMARY | 2024-11-12 03:32 | XMS_ITS | Encounter Summary ---
Author Organization [facility] Address [address] [place] [address] Care Team Providers Care Research Associate Professor Name Role Phone Unavailable Primary Care Provider Vikram e Encounter Details Date Type Department Care Team (Late st Contact Info) Description 10/04/1999 Outpatient Historical [facility] [address] [address] [facility] [address] [place] [address] Umair Chavis ([facility]) Social History Tobacco Use Types Packs/Day Years Used Date Smoking Tobacco: Never Assessed Comments Unknown Sex and Gender Information Value Date Recorded Sex Assigned at Not on file Legal Sex Female 3:57 AM CHORUS MASTER Gender Identity Not on file Sexual Orientation Not on file documented as of this encounter Plan of Treatment Not on file documented as of this encounter Visit Diagnoses Not on filedocumented in this encounter
--- OUTSIDE RECORDS SUMMARY | 2024-11-12 03:32 | XMS_ITS | Encounter Summary ---
Author Organization [facility] Address [address] [place] [address] Care Team Providers Care Weaving Supervisor Name Role Phone Unavailable Primary Care Provider Vikram e Encounter Details Date Type Department Care Team (Late st Contact Info) Description 10/13/2003 Outpatient Historical [facility] [address] [place] [address] Umair Chavis ([facility]) Social History Tobacco Use Types Packs/Day Years Used Date Smoking Tobacco: Never Assessed Comments Unknown Sex and Gender Information Value Date Recorded Sex Assigned at Not on file Legal Sex Female 3:57 AM INTERNET SALES MANAGER Gender Identity Not on file Sexual Orientation Not on file documented as of this encounter Plan of Treatment Not on file documented as of this encounter Visit Diagnoses Not on filedocumented in this encounter
--- OUTSIDE RECORDS SUMMARY | 2024-11-12 03:33 | XMS_ITS | Referral Summary ---
Author Organization [facility] Medical Office Building B Address [address] [place] [address] Care Team Providers Care Glass Presser Name Role Phone Cassandra Portillo MD Primary Care Provider + Darío Tsai MD Unavailable [phone] Encounters Date Type Department Care Team Description 10/11/2024 7:30 AM CDT Ancillary Procedure [facility] Cardiology [address] [place] [phone] Status post placement of implantable loop recorder (Primary Dx); PVC's (premature ventricular contractions); Syncope and collapse 08/30/2024 Orders Only [facility] Cardiology [address] [place] [phone] Yoli Acuna MD Syncope and collapse (Primary Dx); Status post placement of implantable loop recorder; PVC's (premature ventricular contractions) 08/30/2024 7:15 AM TURF AND GROUNDS SUPERVISOR Ancillary Procedure [facility] Cardiology [address] [place] [phone] Status post placement of implantable loop recorder (Primary Dx); PVC's (premature ventricular contractions); Syncope and collapse from Last 3 Months Allergies Active Allergy Reactions Criticality Noted Date Comments Iodinated Contrast Media Itching,Rash Medium 2 Dye Itching High 05/21/[address] scan Warfarin Itching Low 03/26/2012 Reaction: Itching, Itching Medications amitriptyline (ELAVIL) 10 mg tablet 03/30/2018 Active levothyroxine (SYNTHROID, LEVOTHROID) 50 mcg tablet 03/23/2018 Active denosumab (PROLIA) 60 mg/mL syringeIndicatio ns:Post-Menopaus al Osteoporosis,boby ry 6 months Inject under the skin once Active multivitamin capsule Take 1 capsule by mouth daily Active cranberry 500 mg capsule Take by mouth daily. Active hydrOXYchloroQUI NE (PLAQUENIL) 200 mg tablet Take 2 tablets (400 mg total) by mouth daily 03/17/2021 Active famotidine (PEPCID) 20 mg tablet Take 1 tablet (20 mg total) by mouth 2 (two) times a day Active fludrocortisone 0.1 mg tabletIndication s:Syncope and collapse,Idiopat hic hypotension Take 1 tablet (0.1 mg total) by mouth daily 90 tablet 10/11/2024 10/12/19 26 Active Active Problems Problem Noted Date Diagnosed Date Allodynia 07/22/2024 Spasms of the hands or feet 07/22/2024 Status post placement of implantable loop record er 11/20/2022 Overview (11/20/2022): [employer] Loop Recorder. Dx; Syncope, PVC's. DOI 11/20/2022-Mariaa. Card- [facility]. Biotronik remote monitoring. 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 PVC's (premature ventricular contractions) 10/09 Essential tremor 11/28/2021 Esophageal dysphagia 05/18/2018 Overview (05/18/2018): Added automatically from request for surgery [id number] Gastroesophageal reflux disease without esophagi tis 05/18/2018 Overview (05/18/2018): Added automatically from request for surgery [id number] Resolved Problems Problem Noted Date Diagnosed Date [...] on file Legal Sex Female 2:29 AM TURF AND GROUNDS SUPERVISOR Gender Identity Not on file Sexual Orientation Not on file Last Filed Vital Signs Vital Sign Reading Time Taken Comments Blood Pressure 104/65 07/22/2024 8:13 AM TURF AND GROUNDS SUPERVISOR Pulse 80 07/22/2024 8:13 AM TURF AND GROUNDS SUPERVISOR Temperature 36.7 C (98 F) 11/27/2021 2:28 PM CDT Respiratory Rate 12 11/27/2021 2:28 PM CDT Oxygen Saturation 91% 07/22/2024 8:13 AM TURF AND GROUNDS SUPERVISOR Inhaled Oxygen Concentration - - Weight 53.8 kg (118 lb 9.6 oz) 07/22/2024 8:13 A M TURF AND GROUNDS SUPERVISOR Height 167.6 cm (5' 5.98 ) 07/22/2024 8:13 AM CS T Body Mass Index 19.15 07/22/2024 8:13 AM TURF AND GROUNDS SUPERVISOR Plan of Treatment Not on file Procedures Procedure Name Priority Date/Time Associated Diagnosis Comments DEVICE CHECK - REMOTE Routine 10/12/2024 7:47 AM CDT PVC's (premature ventricular contractions) Syncope and collapse DEVICE CHECK - REMOTE Routine 08/30/2024 10:00 AM TURF AND GROUNDS SUPERVISOR PVC's (premature ventricular contractions) Syncope and collapse from Last 3 Months Results * DEVICE CHECK - REMOTE (10/12/2024 7:47 AM CDT) Anatomical Region Laterality Modality Other Narrative 10/14/2024 10:39 AM CDT [employer] Loop Recorder. Dx; Syncope, PVC's. DOI 11/20/2022-Mariaa. Max-[facility]. [employer] remote monitoring. Routine ILR remote. Normal device function. Battery function-Ok. Presenting rhythm: VS, regular 76 bpm. Medications: no cardiac meds listed. Counters since last scheduled transmission on 08/30/2024. No auto or patient recorded episodes noted. 329 Ectopic beats. See scanned report. [employer] remote f/u 11/22/2024. Cami Cunningham, VESTA Yoli Acuna MD [facility] PRO CEDURES Final Result * DEVICE CHECK - REMOTE (08/30/2024 10:00 AM TURF AND GROUNDS SUPERVISOR) Anatomical Region Laterality Modality Other Narrative 09/09/2024 8:14 AM TURF AND GROUNDS SUPERVISOR Biotronik lllm implanted on November 20, 2022 [...] Continue to monitor remotely. Braxton Gonzalez Device Weighing Station Operator [phone] Yoli Acuna MD [facility] PRO CEDURES Final Result from Last 3 Months [place] [address] [facility] MEDICARE [facility] MEDICARE [facility] Advance Directives For more information, please contact: [phone] * Full Code (Latest Code Status on File) Date Activated Date Inactivated Comments 05/21/2018 11:24 AM 05/21/2018 3:19 PM * Full Code Date Activated Date Inactivated Comments 05/21/2018 11:24 AM 05/21/2018 11:24 AM Care Teams Glass Presser Relationship Specialty Start Date End Date Cassandra Portillo MD PCP - General Family Medicine 05/14/18 Darío Tsai MD [address] [place] [address] Referring Physician Dermatology 02/27/21
--- OUTSIDE RECORDS SUMMARY | 2024-11-12 03:33 | XMS_ITS | Encounter Summary ---
Author Organization [facility] Address [address] [place] [address] Care Team Providers Care Timber Hewer Name Role Phone Unavailable Primary Care Provider Unavailabl e Encounter Details Date Type Department Care Team (Late st Contact Info) Description 08/02/2019 Lab Requisition [facility] DermPath Lab [address] [place] [phone] Darío Tsai MD [address] [place], [place] [id number] Social History Tobacco Use Types Packs/Day Years Used Date Smoking Tobacco: Never Assessed Comments Unknown Sex and Gender Information Value Date Recorded Sex Assigned at Not on file Legal Sex Female 11:55 AM SR. PAYROLL MANAGER Gender Identity Not on file Sexual Orientation Not on file documented as of this encounter Plan of Treatment Not on file documented as of this encounter Procedures Procedure Name Priority Date/Time Associated Diagnosis Comments DERMATOPATHOLOGY Routine 07/30/2019 12:0 0 AM SR. PAYROLL MANAGER documented in this encounter Results * DERMATOPATHOLOGY (07/30/2019 12:00 AM SR. PAYROLL MANAGER) Case Report Dermatopathology Report Case: [id number] Authorizing Provider: Darío Tsai MD Collected: 07/30/2019 12:00 AM Ordering Location: [facility] DermPath Lab Received: 08/02/2019 12:15 PM Pathologist: Vilma Campo MD Specimen: Skin, bilat great toenails 0 1:57 PM SR. PAYROLL MANAGER DERMATOPATHOLOGY LABORATORY Final Diagnosis Specimen A. SKIN, bilat great toenails: COMPACT KERATIN CONSISTENT WITH NAIL PLATE (L60.8) 0 1:57 PM SR. PAYROLL MANAGER DERMATOPATHOLOGY LABORATORY Clinical History PAS stain, R/O onychomycosis. 0 1:57 PM SR. PAYROLL MANAGER DERMATOPATHOLOGY LABORATORY Gross Description Specimen A: Received is one formalin filled container labeled with the patient's name and designated bilat great toenails. The specimen consists of a nail clipping (4 pieces) measuring [id number], [id number], [id number], & [id number]. 0 1:57 PM SR. PAYROLL MANAGER DERMATOPATHOLOGY LABORATORY Microscopic Description Specimen A. SKIN, bilat great toenails: Sections show nail plate. Periodic acid-Ricky (PAS) stained sections do not highlight fungal organisms. Bacteria are identified. 0 1:57 PM SR. PAYROLL MANAGER DERMATOPATHOLOGY LABORATORY Disclaimer An external and internal positive and negative controls are appropriate for the histochemical, immunohistochemical and immunofluorescence stain(s) in this case (if any), except where stated explicitly. The performance characteristics of the stain(s) cited in this report were developed and its performance characteristic determined by the Dermatopathology Laboratory at [facility], directed by Dr. Tarun Tovra. These tests need not be, and therefore are not, approved by the [place] Food and Drug Administration. The tests are used for clinical purposes. Billing Codes Specimen Charges Stain Charges 34741 1 79623 1 0 1:57 PM SR. PAYROLL MANAGER DERMATOPATHOLOGY LABORATORY Embedded Images 0 1:57 PM SR. PAYROLL MANAGER DERMATOPATHOLOGY LABORATORY Pathology/Cytolog y TISSUE SPECIMEN FROM SKIN / Unknown 07/30/2019 08/02/2019 12:15 PM SR. PAYROLL MANAGER Darío Tsai MD LAB - PATHOLOGY/CYTOLOGY ORD ERABLES Final Result DERMATOPATHOLOGY LABORATORY [facility] - Department of Dermatology [address] [place] [address], [address] [place] [address], [facility] [phone] documented in this encounter Visit Diagnoses Not on filedocumented in this encounter
--- OUTSIDE RECORDS SUMMARY | 2024-11-12 03:33 | XMS_ITS | Encounter Summary ---
Author Organization [facility] Address [address] [place] [address] Care Team Providers Care Rivet Tapping Machine Operator Name Role Phone Unavailable Primary Care Provider Vikram e Encounter Details Date Type Department Care Team (Late st Contact Info) Description 11/14/2005 Outpatient Historical [facility] Head[facility] [address] [place] [address] Umair Chavis ([facility]) Social History Tobacco Use Types Packs/Day Years Used Date Smoking Tobacco: Never Assessed Comments Unknown Sex and Gender Information Value Date Recorded Sex Assigned at Not on file Legal Sex Female 3:57 AM UI SOFTWARE ENGINEER Gender Identity Not on file Sexual Orientation Not on file documented as of this encounter Plan of Treatment Not on file documented as of this encounter Visit Diagnoses Not on filedocumented in this encounter
--- OUTSIDE RECORDS SUMMARY | 2024-11-12 03:33 | XMS_ITS | Clinical Summary ---
[facility] Address [address] [place] [address] Care Team Providers Care Vice Squad Police Officer Name Role Phone Cassandra Portillo MD Primary Care Provider + Darío Tsai MD Unavailable [phone] Allergies Active Allergy Reactions Criticality Noted Date [...] implantable loop record er 11/20/2022 Overview (11/20/2022): [employer] Loop Recorder. Dx; Syncope, PVC's. DOI 11/20/2022-[place]. [facility]. [employer] remote monitoring. 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 PVC's (premature ventricular contractions) 10/09 Essential tremor 11/28/2021 Esophageal dysphagia 05/18/2018 Overview (05/18/2018): Added automatically from request for surgery [id number] Gastroesophageal reflux disease without esophagi tis 05/18/2018 Overview (05/18/2018): Added automatically from request for surgery [id number] Resolved Problems Problem Noted Date Diagnosed Date Resolved Date Itching 02/27/2023 07/22/2024 Encounters Date Type Department Care Team Description 10/11/2024 7:30 AM CDT Ancillary Procedure [facility] Cardiology [address] [place] [phone] Status post placement of implantable loop recorder (Primary Dx); PVC's (premature ventricular contractions); Syncope and collapse 08/30/2024 7:15 AM SALAD CHEF Ancillary Procedure [facility] Cardiology [address] [place] [phone] Status post placement of implantable loop recorder (Primary Dx); PVC's (premature ventricular contractions); Syncope and collapse 08/30/2024 Orders Only [facility] Cardiology [address] [place] [phone] Yoli Acnua MD Syncope and collapse (Primary Dx); Status post placement of implantable loop recorder; PVC's (premature ventricular contractions) from Last 3 Months Surgical History Surgery Date Site/Laterality Comments TONSILLECTOMY tonsillectomy OTHER SURGICAL HISTORY 1959 Breast lump: fine needle aspiration HYSTERECTOMY 1998 [...] on file Legal Sex Female 2:29 AM SALAD CHEF Gender Identity Not on file Sexual Orientation Not on file Obstetrics History Last Filed Vital Signs Vital Sign Reading Time Taken Comments Blood Pressure 104/65 07/22/2024 8:13 AM SALAD CHEF Pulse 80 07/22/2024 8:13 AM SALAD CHEF Temperature 36.7 C (98 F) 11/27/2021 2:28 PM CDT Respiratory Rate 12 11/27/2021 2:28 PM CDT Oxygen Saturation 91% 07/22/2024 8:13 AM SALAD CHEF Inhaled Oxygen Concentration - - Weight 53.8 kg (118 lb 9.6 oz) 07/22/2024 8:13 A M SALAD CHEF Height 167.6 cm (5' 5.98 ) 07/22/2024 8:13 AM CS T Body Mass Index 19.15 07/22/2024 8:13 AM SALAD CHEF Plan of Treatment Health Maintenance Due Date Last Done Comments Depression Screening 1940 Fall Risk Assessment 1940 Osteoporosis Screening-Bone Density Scan 1940 DTaP/Tdap/Td Vaccine (1 - Tdap) 1951 Hepatitis B Screening 1958 Pneumococcal vaccine 65+ (1 of 2 - PCV) 1959 Well Visit 65+ 2005 Covid-19 Vaccine (4 - 2023-2 5 season) 2024 04/18/2021, 10/08/2020, 09/17/2020 Influenza Vaccine (#1) 2024 , 04/23/2019, 04/19/2018, Additional history exists Zoster Vaccine Completed 05/04/2018, 02/28/2018 Procedures Procedure Name Priority Date/Time Associated Diagnosis Comments DEVICE CHECK - REMOTE Routine 10/12/2024 7:47 AM CDT PVC's (premature ventricular contractions) Syncope and collapse DEVICE CHECK - REMOTE Routine 08/30/2024 10:00 AM SALAD CHEF PVC's (premature ventricular contractions) Syncope and collapse from Last 3 Months Results * DEVICE CHECK - REMOTE (10/12/2024 7:47 AM CDT) Anatomical Region Laterality Modality Other Narrative 10/14/2024 10:39 AM CDT [employer] Loop Recorder. Dx; Syncope, PVC's. DOI 11/20/2022-[place]. [facility]. [employer] remote monitoring. Routine ILR remote. Normal device function. Battery function-Ok. Presenting rhythm: VS, regular 76 bpm. Medications: no cardiac meds listed. Counters since last scheduled transmission on 08/30/2024. No auto or patient recorded episodes noted. 329 Ectopic beats. See scanned report. [employer] remote f/u 11/22/2024. Cami Cunningham RN [facility] Alisson Acuna MD CV CARDIAC SERVICES PRO CEDURES Final Result * DEVICE CHECK - REMOTE (08/30/2024 10:00 AM SALAD CHEF) Anatomical Region Laterality Modality Other Narrative 09/09/2024 8:14 AM SALAD CHEF [employer] lllm implanted on November 20, 2022 [...] new episode. 2) Continue to monitor remotely. [employer] Device Cotton Puller [phone] [facility] Alisson Acuna MD CV CARDIAC SERVICES PRO CEDURES Final Result from Last 3 Months Insurance MEDICARE [place] [address] MEDICARE [facility] [place] [address] MEDICARE [facility] Advance Directives For more information, please contact: [phone] * Full Code (Latest Code Status on File) Date Activated Date Inactivated Comments 05/21/2018 11:24 AM 05/21/2018 3:19 PM * Full Code Date Activated Date Inactivated Comments 05/21/2018 11:24 AM 05/21/2018 11:24 AM Care Teams Vice Squad Police Officer Relationship Specialty Start Date End Date Cassandra Portillo MD PCP - General Family Medicine 05/14/18 Darío Tsai MD [address] [place] [address] Referring Physician Dermatology 02/27/21
[2024-11-12 09:11] VITALS: BP 103/59; PULSE 69; RESP 12; TEMP 36.4; O2SAT 100; BMI 19.1
[2024-11-12] MEDS: LACTATED RINGERS 1,000 ML 150 ML IV CONT (09:35)
--- NOTE | 2024-11-12 10:13 | WPDANESEPPF ---
Anes - Initial Pre Proc Eval Procedure: Operation Date: 11/12/24 10:30 Proposed Procedures p Esophagogastroduodenoscopy - Mc Jackson MD Date/Time: 11/12/24 10:13 Surgeon: Mc Jackson MD Pre Op Diagnosis: Dysphagia, unspecified Patient Data Age: 84 Gender: F Height: 1.68 m Weight: 53.6 kg Last Vital Signs Temp 97.5 F L 11/12/24 09:11 Pulse 69 11/12/24 09:11 Resp 12 11/12/24 09:11 BP 103/59 L 11/12/24 09:11 Pulse Ox 100 11/12/24 09:11 O2 Del Method Room Air 11/12/24 09:11 Allergies Allergy/AdvReac Type Severity Reaction Status Date / Time ciprofloxacin (From Cipro) Allergy Severe Itching Verified 11/12/24 09:18 Gadolinium-Containing Allergy Severe Itching Verified 11/12/24 09:18 Contrast Medi iodine Allergy Severe Skin Verified 11/12/24 09:18 Reaction warfarin Allergy Severe itching Verified 11/12/24 09:18 all over Home Medications ?Medication ?Instructions ?Recorded ?Confirmed ?Type fludrocortisone 0.1 mg tablet 0.1 mg PO DAILY 11/19/22 11/12/24 History levothyroxine 50 mcg tablet See Rx Instructions .Route 08/16/24 11/12/24 Rx .COMPLEX #90 tabs amitriptyline 10 mg tablet See Rx Instructions .Route 10/11/24 11/12/24 Rx .COMPLEX #90 tabs hydroxychloroquine 200 mg tablet 200 mg PO HS 11/11/24 11/12/24 History Patient hx anesthesia problems: none Family hx anesthesia problems: none Results Review: All pre-operative results and documents have been reviewed as part of the pre-operative evaluation. 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 patient reports trauma Xerosis cutis Esophageal dysphagia Surgical History Surgical History History of cataract removal with insertion of prosthetic lens History of tonsillectomy History of hysterectomy Family History Family History Mother Family history of osteoporosis Father Family history of liver disease Sibling Family history of arthritis Family history of colitis Mother No problems noted. Social History Social History Social History: in 2018. She has 1 son in [place] and the other son in [place], with her grandchildren. 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 Smoking status: Never smoker Second hand tobacco smoke exposure: No Alcohol intake: never Substance use: never Substance use type: does not use Lack of Transportation: No Lack of Food: Never True Current Housing: I Have Housing Concerned About Future Housing: No Difficulty Paying Gas/Electric Bills: No Difficulty Paying for Meds: No Currently Unemployed: No Education: High School Diploma/GED Difficulty w/ Childcare or Family Care: No Living arrangements: alone Gender identity (if verbalized by the patient): Male Spiritual care concerns: No Anes - Eval Final PreProcedure Day of Procedure 11/12/24 10:13 Patient weight: normal Heart: regular rate and rhythm Lungs: clear to auscultation Airway: Mallampati scale class II Neurological: alert and oriented Last oral intake: >/= 8 hours ASA classification: III Emergent: no Anesthetic plan: proceed Anesthesia type and monitoring: general GIVS and standard monitoring Results Review: All pre-operative results and documents have been reviewed as part of the pre-operative evaluation. Informed Consent: The patient's anesthetic plan and its attendant risks and benefits were discussed with the patient/family/POA. Questions were solicited and answers provided to the satisfaction of the patient/family/POA.
--- NOTE | 2024-11-12 10:21 | PM.IMHP ---
H&P: HPI History of Present Illness Date/Time: 11/12/24 10:21 Chief Complaint: Dysphagia Narrative: the patient has been complaining of intermittent dysphagia for a few months. This is occurring especially with solid food. There is also occasional heartburn. She is referred for EGD and possible dilatation. 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 patient reports trauma Xerosis cutis Esophageal dysphagia Surgical History Surgical History History of cataract removal with insertion of prosthetic lens History of tonsillectomy History of hysterectomy Family History Family History Mother Family history of osteoporosis Father Family history of liver disease Sibling Family history of arthritis Family history of colitis Mother No problems noted. Social History Social History Social History: in 2018. She has 1 son in [place] and the other son in [place], with her grandchildren. 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 Smoking status: Never smoker Second hand tobacco smoke exposure: No Alcohol intake: never Substance use: never Substance use type: does not use Lack of Transportation: No Lack of Food: Never True Current Housing: I Have Housing Concerned About Future Housing: No Difficulty Paying Gas/Electric Bills: No Difficulty Paying for Meds: No Currently Unemployed: No Education: High School Diploma/GED Difficulty w/ Childcare or Family Care: No Living arrangements: alone Gender identity (if verbalized by the patient): Male Spiritual care concerns: No Meds Home Medications and Allergies Home Medications ?Medication ?Instructions ?Recorded ?Confirmed ?Type fludrocortisone 0.1 mg tablet 0.1 mg PO DAILY 11/19/22 11/12/24 History levothyroxine 50 mcg tablet See Rx Instructions .Route 08/16/24 11/12/24 Rx .COMPLEX #90 tabs amitriptyline 10 mg tablet See Rx Instructions .Route 10/11/24 11/12/24 Rx .COMPLEX #90 tabs hydroxychloroquine 200 mg tablet 200 mg PO HS 11/11/24 11/12/24 History Allergies Allergy/AdvReac Type Severity Reaction Status Date / Time ciprofloxacin (From Cipro) Allergy Severe Itching Verified 11/12/24 09:18 Gadolinium-Containing Allergy Severe Itching Verified 11/12/24 09:18 Contrast Medi iodine Allergy Severe Skin Verified 11/12/24 09:18 Reaction warfarin Allergy Severe itching Verified 11/12/24 09:18 all over Vital Signs Vital Signs - 24 hr 11/12/24 09:11 Temperature 97.5 F L Pulse Rate 69 Respiratory Rate 12 Blood Pressure 103/59 L Pulse Oximetry 100 Oxygen Delivery Room Air Exam Const: General: cooperative and healthy appearing Resp: Effort & Inspection: normal respiratory effort and able to speak in complete sentences Auscultation: clear to auscultation bilaterally Cardio: Rate: regular rate Rhythm: regular rhythm GI: Inspection: normal to inspection GI Palp: No No hepatosplenomegaly present Auscultation: normal bowel sounds Rectal Exam: deferred Skin: General skin exam: normal color Psych: Appearance: grossly normal Mental Status: mental status grossly normal Assessment and Plan Assessment and plan (1) GERD without esophagitis: Code(s): K21.9 - Gastro-esophageal reflux disease without esophagitis Status: Acute Assessment and Plan: The patient is deemed a good candidate for the procedure. Consent signed. Will proceed. (2) Dysphagia: Code(s): R13.10 - Dysphagia, unspecified Status: Acute
[2024-11-12 10:43] VITALS: BP 98/52; PULSE 67; RESP 15; O2SAT 99
[2024-11-12 10:53] VITALS: BP 108/61; PULSE 70; RESP 22; O2SAT 99
[2024-11-12 11:03] VITALS: BP 116/71; PULSE 67; RESP 26; O2SAT 100
== END 2024-11-12 11:10 | disposition home or self-care (01) ==
PROVIDERS: PCP Family Medicine; Referring Provider Family Medicine; Visit Provider Internal Medicine Gastroenterology
PROC: 0DJ08ZZ Inspection of Upper Intestinal Tract, Via Natural or Artificial Opening Endoscopic (ICD-10-PCS; CPT 43239; principal; 2024-11-12 10:30)
DX: K21.9 Gastro-esophageal reflux disease without esophagitis (principal); K29.50 Unspecified chronic gastritis without bleeding; E03.9 Hypothyroidism, unspecified; L85.3 Xerosis cutis; Z87.11 Personal history of peptic ulcer disease; Z87.19 Personal history of other diseases of the digestive system; Z98.890 Other specified postprocedural states
CPT/HCPCS: 43239; 88305; J2003; J2704; J7120

== ENCOUNTER 2025-01-13 08:40 | Outpatient (CLI) | payer MEDICARE, OTHER, SELFPAY ==
--- NOTE | ~2025-01-13 | MM_ITS ---
EXAMINATION: MM screening [facility] BI w dani HISTORY: Screening mammogram TECHNIQUE: Craniocaudal and mediolateral oblique 3-D tomosynthesis images were obtained and synthetic 2-D images were generated. CAD analysis was submitted and interpreted. COMPARISON: 01/06/2024, 01/02/2023, 11/17/2021 BREAST PARENCHYMAL COMPOSITION:Not Dense. There are scattered areas of fibroglandular density. FINDINGS: No suspicious mass, calcification, or architectural distortion are identified in either rolanda ast to suggest malignancy. There has been no suspicious interval change. IMPRESSION: No mammographic evidence of malignancy. Recommend routine screening mammography in one year. BI-RADS Category 1: Negative Reviewed, dictated and finalized at location .
== END 2025-01-13 08:41 | disposition home or self-care (01) ==
LOC: ANHIMG 08:42
PROVIDERS: PCP Family Medicine; Visit Provider Family Medicine
DX: Z12.31 Encounter for screening mammogram for malignant neoplasm of breast (principal)
CPT/HCPCS: 77063; 77067